=== PATIENT | male | born 1980 | race African-American/Black ===

== ENCOUNTER 2017-03-20 12:20 | Inpatient (IN) | payer MEDICAID, OTHER ==
[~2017-03-20] VITALS: Ht 170.2 cm; Wt 72.6 kg
[~2017-03-20 12:20] MED LIST: AMLO10TA PO; ATI2I IM/IVP; Acetaminophen/Hydrocodone Bi PO; CITA20TA15 PO; LORA-476 PO; MULT-405 PO; OLAN5TAB29 PO; ONDA2SOL80 IVP; ORE25 PO; THIA100T25 PO; TOR30I IM; [UNRECOGNIZED DRUG - CODE] IVP
[2017-03-20 12:23] VITALS: BP 147/80
--- NOTE | 2017-03-20 12:27 | NUR ---
Patient to OF.
--- NOTE | 2017-03-20 12:50 | NUR ---
Patient ambulated to bed 03.
--- NOTE | 2017-03-20 12:54 | NUR ---
PATIENT PRESENTS TO ED FOR EVALUATION OF SUICIDAL IDEATION . PT STATES FOR THE PAST 3 WEEKS THE VOICES IN HIS HEAD HAVE BEEN TELLING HIM TO KILL HIMSELF. PT DENIES HAVING ANY KIND OF PLAN TO HARM HIMSELF . DENIES N/V/D; SKIN IS PINK/WARM/DRY; AAOX4 WITH EVEN AND STEADY GAIT; LUNGS CLEAR BL; HR EVEN AND REGULAR; PT DENIES ANY FEVER, CP, SOB, OR COUGH AT THIS TIME; PATIENT STATES PAIN OF 0/10 AT THIS TIME; VSS; PATIENT POSITIONED FOR COMFORT; HOB ELEVATED; BEDRAILS UP X2; BED DOWN. ER MD MADE AWARE OF PT STATUS.
--- NOTE | 2017-03-20 12:57 | NUR ---
DENISE Nieves AT BEDSIDE.
--- NOTE | 2017-03-20 13:09 | NUR ---
PT PLACED ON [facility]0 HOLD. Ryan NOTIFIED.
[2017-03-20 13:11] LABS: BASOPHILS # (AUTO) 0.1 K/uL (0.00-0.22); BASOPHILS % (AUTO) 2.2 % (0.0-2.0); EOSINOPHILS # (AUTO) 0.2 K/uL (0-0.4); HEMATOCRIT 38.8 % (36-52); HEMOGLOBIN 12.3 g/dL (12.0-18.0); LYMPHOCYTES # (AUTO) 2.5 K/uL (2.0-11.5); LYMPHOCYTES % (AUTO) 51.4 % (20.5-51.1); MEAN CORPUSCULAR HEMOGLOBIN 27 pg (27-31); MEAN CORPUSCULAR HGB CONC 32 g/dL (33-37); MEAN CORPUSCULAR VOLUME 84 fL (80-94); MONOCYTES # (AUTO) 0.5 K/uL (0.8-1.0); MONOCYTES % (AUTO) 9.1 % (1.7-9.3); NEUTROPHILS # (AUTO) 1.7 K/uL (1.8-7.7); NEUTROPHILS % (AUTO) 33.3 % (42.2-75.2); PLATELET COUNT (AUTO) 419 K/uL (140-450); RED BLOOD CELL COUNT(AUTO) 4.61 MIL/uL (4.20-6.10); RED CELL DISTRIBUTION WIDTH 15.4 % (11.6-13.7)
[2017-03-20 13:13] LABS: ANION GAP 11.4 (8-16); CALCIUM 8.9 mg/dL (8.5-10.1); CARBON DIOXIDE 28.5 mmol/L (21-32); CHLORIDE 108 mmol/L (98-107); CREATININE 0.9 mg/dL (0.6-1.3); GFR ARICAN-AMERICAN 121 mL/min (>90); GFR NON ARICAN-AMERICAN 100 mL/min (>90); GLUCOSE 85 mg/dL (74-106); POTASSIUM 3.9 mmol/L (3.5-5.1); SODIUM SERUM 144 mmol/L (136-145); UREA NITROGEN, BLOOD 6 mg/dL (7-18)
[2017-03-20 13:19] LABS: ACETAMINOPHEN 0.7 ug/ml (10-30); ALANINE AMINOTRANSFERASE 29 U/L (12-78); ALBUMIN 3.3 g/dL (3.4-5.0); ALKALINE PHOSPHATASE 106 U/L (46-116); ASPARTATE AMINOTRANSFERASE 17 U/L (15-37); TOTAL BILIRUBIN 0.1 mg/dL (0.0-1.0); TOTAL PROTEIN, SERUM 6.4 g/dL (6.4-8.2)
[2017-03-20 13:21] LABS: ALCOHOL, BLOOD < 3 mg/dL (<3)
[2017-03-20 13:45] LABS: APPEARANCE,URINE CLEAR (CLEAR); BILIRUBIN,URINE NEGATIVE (NEGATIVE); BLOOD, URINE NEGATIVE (NEGATIVE); COLOR,URINE YELLOW (YELLOW); LEUKOCYTE ESTERASE ,URINE NEGATIVE (NEGATIVE); NITRITE, URINE NEGATIVE (NEGATIVE); PH,URINE 6.5 (5.0-9.0); PROTEIN,URINE NEGATIVE (NEGATIVE); UGLUCOSE NEGATIVE (NEGATIVE); UROBILINOGEN,URINE 0.2 EU/dL (0.2 - 1)
--- NOTE | 2017-03-20 13:45 | NUR ---
Dr. Berman evaluating patient at bedside.
[2017-03-20 13:54] LABS: AMPHETAMINE, URINE NEG. ng/ml (NEG <=1000); BARBITURATE, URINE NEG. ng/ml (NEG <=200); BENZODIAZEPINE, URINE NEG. ng/mL (NEG <=200); CANNABINOID, URINE POS. ng/mL (NEG <=50); COCAINE, URINE NEG. ng/mL (NEG <=300); OPIATE, URINE NEG. ng/mL (NEG <=2000); PHENCYCLIDINE SCREEN,URINE NEG. ng/mL (NEG <=25)
--- NOTE | 2017-03-20 14:14 | NUR ---
PT EATING LUNCH ON GURNEY. DENIES ANY PAIN OR DISCOMFORT AT THIS TIME.
[2017-03-20] MEDS ORDERED: KETOROLAC 30 MG/ML VIAL IVP PRN (15:35)
[2017-03-20] MEDS ORDERED: ONDANSETRON 4 MG/2 ML VIAL IVP PRN (15:35)
[2017-03-20] MEDS ORDERED: MORPHINE SULFATE 2 MG/ML SYR IVP PRN (15:35)
[2017-03-20] MEDS ORDERED: LORazepam 1 MG TAB PO PRN (15:40)
[2017-03-20] MEDS ORDERED: LORazepam 2 MG/ML VIAL IM/IVP PRN (15:40)
--- NOTE | 2017-03-20 15:42 | NUR ---
Patient will be admitted to care of DR. PAYTON. Admited to ICU. Will go to room 5. Belongings list completed. Report to HILLARY EASTON.
--- NOTE | 2017-03-20 15:50 | NUR ---
RECEIVED PATIENT FROM ED TO ICU5. ALERT AND ORIENTED X4. LEFT DORSAL HAND PERIPHERAL IV PATENT AND INTACT. ABLE TO WALK TO BED FOR TRANSFER. SKIN WARM TO TOUCH WNL, NO EDEMA, NO HAIR GROWTH, SCARRING NOTED ON RLE. MADE COMFORTABLE IN BED. CALL LIGHT WITHIN REACH.
[2017-03-20 16:00] VITALS: BP 136/84
[2017-03-20 16:29] LABS: INR 0.9 (0.8-1.2); PARTIAL THROMBOPLASTIN TIME 28.4 secs (22-35.6); PROTHROMBIN TIME 8.8 secs (10.8-13.4)
[2017-03-20 16:36] LABS: BILIRUBIN,DIRECT 0.1 mg/dL (0.0-0.3); CHOL/HDL RATIO 2.5 (1-4.5); FREE T4 (FREE THYROXINE) 0.89 ng/dL (0.76-1.46); MAGNESIUM 1.9 mg/dL (1.8-2.4); PHOSPHORUS 3.4 mg/dL (2.5-4.9); THYROID STIMULATING HORMONE 0.65 uIU/mL (0.34-3.76)
[2017-03-20] MEDS ORDERED: HYDROCHLOROTHIAZIDE 25 MG TAB PO SCH (16:37)
[2017-03-20] MEDS ORDERED: CITALOPRAM 20 MG TAB PO SCH (16:46)
[2017-03-20] MEDS: NACL 0.9% 1,000 ML IV SCH (17:30)
--- NOTE | 2017-03-20 18:50 | NUR ---
TRANSFERRED PATIENT TO [facility] IN STABLE CONDITION. REPORT GIVEN TO PRIMARY RN.
--- NOTE | 2017-03-20 19:30 | NUR ---
RECEIVED REPORT FROM MARKUS RN. PATIENT IS ALERT, AWAKE, AND ORIENTED. PATIENT IS ON BEDREST WITH 1:1 SITTER RELATED TO DX SUICIDAL IDEATION AND 5150. NO SIGNS OF RESPIRATORY DISTRESS OR SOB NOTED. VITALS ARE STABLE WITH NO REPORTS OF PAIN OR DISCOMFORT AT THIS TIME. THERE IS A #20 IN THE LEFT HAND RECEIVING NORMAL SALINE AT 100 ML/HR. SITE IS DRY, INTACT, AND ASYMPTOMATIC. EXPLAINED PLAN OF CARE TO PATIENT TO INCLUDE 1:1 SITTER, TELEMETRY MONITORING, AND SCHEDULED MEDICATIONS. PATIENT VERBALIZED UNDERSTANDING. CONTINUE TO MONITOR PATIENT.
[2017-03-20 20:00] VITALS: BP 144/95
--- NOTE | 2017-03-20 20:00 | NUR ---
MARTY CARROLL ASSISTED PATIENT TO TOILET FOR BM. GAIT STEADY WITH NO SIGNS OF DISTRESS NOTED. CONTINUE TO MONITOR.
--- NOTE | 2017-03-20 22:30 | NUR ---
PATIENT IS SLEEPING IN BED. BREATHING IS EVEN AND UNLABORED. PATIENT IS UNDER CLOSE OBSERVATION WITH 1:1 SITTER. WILL CONTINUE TO MONITOR PATIENT.
--- NOTE | 2017-03-20 23:35 | NUR ---
MARTY CARROLL ASSISTED PATIENT TO BATHROOM TO VOID. NO SIGNS OF DISTRESS NOTED. CONTINUE TO MONITOR.
[2017-03-21] VITALS: BP 139/74
--- NOTE | 2017-03-21 00:15 | NUR ---
VITAL SIGNS STABLE. NO REPORTS OF PAIN OR DISCOMFORT. CLOSE OBSERVATION WITH 1:1 SITTER. CONTINUE TO MONITOR PATIENT.
--- NOTE | 2017-03-21 02:00 | NUR ---
PATIENT SELF AMBULATED TO BATHROOM TO VOID. NO SIGNS OF DISTRESS NOTED. 1:1 SITTER WITH CLOSE OBSERVATION. CONTINUE TO MONITOR.
--- NOTE | 2017-03-21 02:05 | NUR ---
PATIENT SELF AMBULATED BACK INTO BED. NO SIGNS OF DISTRESS NOTED. 1:[address] FOR CLOSE OBSERVATION. CONTINUE TO MONITOR PATIENT.
[2017-03-21] MEDS: NACL 0.9% 1,000 ML IV SCH ×4 (02:45→23:14)
[2017-03-21 04:00] VITALS: BP 133/82
--- NOTE | 2017-03-21 04:00 | NUR ---
PATIENT IS RESTING COMFORTABLY IN BED, WITH 1:1 SITTER FOR CLOSE OBSERVATION. VITALS ARE WNL. NO C/O PAIN OR DISCOMFORT AT THIS TIME. CONTINUE TO MONITOR PATIENT.
[2017-03-21 06:51] LABS: BASOPHILS # (AUTO) 0.1 K/uL (0.00-0.22); BASOPHILS % (AUTO) 1.7 % (0.0-2.0); EOSINOPHILS # (AUTO) 0.2 K/uL (0-0.4); EOSINOPHILS % (AUTO) 3.5 % (0.0-4.0); HEMATOCRIT 38.7 % (36-52); HEMOGLOBIN 12.8 g/dL (12.0-18.0); LYMPHOCYTES # (AUTO) 2.5 K/uL (2.0-11.5); LYMPHOCYTES % (AUTO) 47.8 % (20.5-51.1); MEAN CORPUSCULAR HEMOGLOBIN 27 pg (27-31); MEAN CORPUSCULAR HGB CONC 33 g/dL (33-37); MEAN CORPUSCULAR VOLUME 83 fL (80-94); MONOCYTES # (AUTO) 0.5 K/uL (0.8-1.0); PLATELET COUNT (AUTO) 415 K/uL (140-450); RED BLOOD CELL COUNT(AUTO) 4.65 MIL/uL (4.20-6.10); RED CELL DISTRIBUTION WIDTH 15.7 % (11.6-13.7); WHITE BLOOD COUNT (AUTO) 5.4 K/uL (4.8-10.8)
[2017-03-21 07:05] LABS: ANION GAP 11.5 (8-16); CALCIUM 8.4 mg/dL (8.5-10.1); CARBON DIOXIDE 28.3 mmol/L (21-32); CREATININE 0.9 mg/dL (0.6-1.3); POTASSIUM 3.8 mmol/L (3.5-5.1)
[2017-03-21 07:15] LABS: MAGNESIUM 1.8 mg/dL (1.8-2.4)
--- NOTE | 2017-03-21 07:20 | NUR ---
PATIENT IN STABLE CONDITION. ENDORSED CONTINUITY OF CARE TO SELENA THORNTON.
--- NOTE | 2017-03-21 07:21 | NUR ---
RECEIVED REPORT FROM HILLARY VICENTE AT PT BEDSIDE. PT IS AAOX4. DENIES DISCOMFORT. NO S/S OF RESPIRATORY DISTRESS. PT IS ON 1:1 DIRECT OBSERVATION WITH A SITTER FOR SUICIDAL IDEATION. IV SITE PATENT AND INTACT. ORIENTED PATIENT TO HOSPITAL ENVIRONMENT. SAFETY MEASURES ENSURED. BED IN LOWEST POSITION. CALL LIGHT WITHIN REACH. PT DOES NOT HAVE ACTIVE THOUGHTS OF SUICIDAL IDEATION AT THIS TIME.
[2017-03-21 08:00] VITALS: BP 147/99
[2017-03-21] MEDS: MULTIVITAMIN 1 TAB PO SCH (08:37)
[2017-03-21] MEDS: CITALOPRAM 20 MG TAB PO SCH (08:37)
[2017-03-21] MEDS: THIAMINE 100 MG TAB PO SCH (08:37)
[2017-03-21] MEDS: amLODIPine 5 MG TAB PO SCH (08:37)
[2017-03-21] MEDS: OLANZapine 5 MG TAB PO SCH (08:37)
[2017-03-21] MEDS: FAMOTIDINE 20 MG TAB PO SCH (08:37)
[2017-03-21] MEDS: HYDROCHLOROTHIAZIDE 25 MG TAB PO SCH (08:37)
[2017-03-21] MEDS: DOCUSATE SODIUM 100 MG GELCAP PO SCH (08:38)
--- NOTE | 2017-03-21 10:13 | NUR ---
PATIENT HAS BEEN SCREENED AND CATEGORIZED LOW NUTRITION RISK. PATIENT WILL BE SEEN WITHIN 7 DAYS OF ADMISSION. 03/27/[address]
--- NOTE | 2017-03-21 11:56 | NUR ---
PT RESTING IN BED. SITTER AT BEDSIDE. NO S/S OF ACUTE DISTRESS NOTED. IV FOUND TO BE REMOVED, CANULA INTACT.
[2017-03-21 12:00] VITALS: BP 132/77
--- NOTE | 2017-03-21 14:41 | NUR ---
PT SLEEPING IN BED. NO S/S OF ACUTE DISTRESS. 1:1 DIRECT OBSERVATION FOR SAFETY IN PLACE.
--- NOTE | 2017-03-21 15:26 | NUR ---
CM NOTE FAXED INQUIRY AND GAVE THE NUMBER TO THE NURSING UNIT WHERE PATIENT IS TO: [facility]
[2017-03-21 16:00] VITALS: BP 124/66
--- NOTE | 2017-03-21 17:02 | NUR ---
ASSISTED PT TO SHOWER. LINENS CHANGED. NO S/S OF ACUTE DISTRESS. PATIENT BACK IN BED.
--- NOTE | 2017-03-21 18:00 | NUR ---
PATIENT WAS SEEN BY DR. MCKEON. PATIENT IS CONTINUED TO BE ON 5150 HOLD.
--- NOTE | 2017-03-21 19:11 | NUR ---
SBAR REPORT GIVEN TO HILLARY SHIN AT PT BEDSIDE. NO S/S OF ACUTE DISTRESS NOTED.
--- NOTE | 2017-03-21 19:30 | NUR ---
RECEIVED REPORT FROM SELENA THORNTON AT BEDSIDE. PT IS ALERT AWAKE ORIENTED X4. INITIAL ASSESSMENT DONE. NO S/S OF RESPIRATORY DISTRESS OR SOB NOTED. NO C/O PAIN OR ANY DISCOMFORT AT THIS TIME. PT HAS NO IV ACCESS BECAUSE HE REFUSED TO HAVE ONE AND DR. PAYTON MADE AWARE ACCORDING TO SELENA THORNTON. PT IS ON 1:1 SITTER D/T 5150 ON HOLD. PLAN OF CARE REVIEWED TO PT AND VERBALIZED UNDERSTANDING. CALL LIGHT WITHIN REACH. WILL CONTINUE TO MONITOR.
[2017-03-21] MEDS: ACETAMINOPHEN 325 MG TAB PO PRN (22:44)
[2017-03-22] VITALS: BP 127/73
--- NOTE | 2017-03-22 00:30 | NUR ---
PT IS SLEEPING RIGHT NOW BUT EASILY AROUSABLE. NO S/S OF ANY DISCOMFORT AT THIS TIME. ALL NEEDS ARE ATTENDED. CALL LIGHT WITHIN REACH. WILL CONTINUE TO MONITOR.
--- NOTE | 2017-03-22 05:10 | NUR ---
AM CARE RENDERED. BED LINEN CHANGED. INSTRUCTED PATIENT TO REPOSITION. KEPT CLEAN AND DRY. CALL LIGHT WITHIN REACH. WILL CONTINUE TO MONITOR.
[2017-03-22 07:00] LABS: BASOPHILS # (AUTO) 0.1 K/uL (0.00-0.22); EOSINOPHILS # (AUTO) 0.2 K/uL (0-0.4); EOSINOPHILS % (AUTO) 2.2 % (0.0-4.0); HEMATOCRIT 40.6 % (36-52); HEMOGLOBIN 13.3 g/dL (12.0-18.0); LYMPHOCYTES # (AUTO) 2.6 K/uL (2.0-11.5); LYMPHOCYTES % (AUTO) 37.7 % (20.5-51.1); MEAN CORPUSCULAR HEMOGLOBIN 27 pg (27-31); MEAN CORPUSCULAR HGB CONC 33 g/dL (33-37); MEAN CORPUSCULAR VOLUME 83 fL (80-94); MONOCYTES # (AUTO) 0.6 K/uL (0.8-1.0); MONOCYTES % (AUTO) 8.8 % (1.7-9.3); NEUTROPHILS # (AUTO) 3.4 K/uL (1.8-7.7); NEUTROPHILS % (AUTO) 50.3 % (42.2-75.2); PLATELET COUNT (AUTO) 415 K/uL (140-450); RED BLOOD CELL COUNT(AUTO) 4.88 MIL/uL (4.20-6.10); RED CELL DISTRIBUTION WIDTH 15.2 % (11.6-13.7); WHITE BLOOD COUNT (AUTO) 6.9 K/uL (4.8-10.8)
[2017-03-22 07:12] LABS: ANION GAP 10.6 (8-16); CALCIUM 8.8 mg/dL (8.5-10.1); CARBON DIOXIDE 30.3 mmol/L (21-32); POTASSIUM 3.9 mmol/L (3.5-5.1)
--- NOTE | 2017-03-22 07:30 | NUR ---
RECEIVED PT ON BED AAOX4. NO SOB NOTED. NO C/O PAIN AT THIS TIME. NO IV ACCESS, PT REFUSED IV RESTART, DOCTORS AWARE. CHEST CLEAR. ABDOMEN SOFT, BOWEL SOUNDS PRESENT. NO EDEMA NOTED. INSTRUCTED PT TO CALL FOR ASSISTANCE, CALL LIGHT WITHIN REACH, PT VERBALIZED UNDERSTANDING. PT ON 5150 HOLD, WITH 1:1 SITTER AT THE BEDSIDE. NO SUICIDAL IDEATION NOTED AT THIS TIME.WILL CONTINUE TO MONITOR.
[2017-03-22 08:00] VITALS: BP 156/97
[2017-03-22] MEDS: NACL 0.9% 1,000 ML IV SCH ×2 (08:45→17:44)
[2017-03-22] MEDS: CITALOPRAM 20 MG TAB PO SCH (09:14)
[2017-03-22] MEDS: FAMOTIDINE 20 MG TAB PO SCH (09:14)
[2017-03-22] MEDS: DOCUSATE SODIUM 100 MG GELCAP PO SCH (09:14)
[2017-03-22] MEDS: OLANZapine 5 MG TAB PO SCH (09:14)
[2017-03-22] MEDS: MULTIVITAMIN 1 TAB PO SCH (09:14)
[2017-03-22] MEDS: HYDROCHLOROTHIAZIDE 25 MG TAB PO SCH (09:15)
[2017-03-22] MEDS: THIAMINE 100 MG TAB PO SCH (09:15)
[2017-03-22] MEDS: amLODIPine 5 MG TAB PO SCH (09:15)
--- NOTE | 2017-03-22 12:30 | NUR ---
PT CONSUMED 100% OF EVERY MEAL SERVED. FOOD TOLERATED WELL.
[2017-03-22 16:00] VITALS: BP 157/78
--- NOTE | 2017-03-22 16:23 | NUR ---
PT RESTING. NO SOB NOTED. NO COMPLAINTS MADE. NO SUICIDAL IDEATION NOTED AT THIS TIME. ENDORSED TO LUCY-HILLARY FOR CONTINUITY OF CARE.
--- NOTE | 2017-03-22 16:25 | NUR ---
RECEIVED PT REPORT FROM ERNIE THORNTON. PT IS RESTING IN BED AND AAOX4. PT STATES HE HAS NO PAIN. PT SHOWS NO S/S OF DISTRESS ON ROOM AIR.
[2017-03-22] MEDS: ACETAMINOPHEN 325 MG TAB PO PRN (17:29)
--- NOTE | 2017-03-22 18:56 | NUR ---
PT IN ROOM WITH ONE TO ONE SITTER. PT AAOX4 AND SHOWS NO S/S OF DISTRESS ON ROOM AIR.
--- NOTE | 2017-03-22 19:15 | NUR ---
GAVE REPORT TO NIGHT NURSE. PT IS IN BED SLEEPING AND SHOWS NO S/S OF DISTRESS ON ROOM AIR. PT ENDORSED IN STABLE CONDITION.
--- NOTE | 2017-03-22 19:20 | NUR ---
RECEIVED PT SLEEPING, NO SIGNS OF DISTRESS, NO IV ACCESS, PT REFUSED TO START A NEW IV SITE, DR IS AWARE, SAFETY MEASURES IN PLACE, CALL LIGHT WITHIN REACH, SITTER AT BEDSIDE.
[2017-03-23] VITALS: BP 157/90
--- NOTE | 2017-03-23 | NUR ---
PT SLEEPING, EASILY AROUSABLE, VITAL SIGNS STABLE, NO SIGNS OF DISTRESS, CONTINUE TO MONITOR CLOSELY, SITTER AT BEDSIDE.
--- NOTE | 2017-03-23 04:40 | NUR ---
PT AWAKE, CALM AND COOPERATIVE, REQUESTING FOR SNACK, PUDDING AND RYLEE CRACKERS PROVIDED, MONITORED CLOSELY.
[2017-03-23] MEDS: NACL 0.9% 1,000 ML IV SCH ×2 (04:45→14:45)
--- NOTE | 2017-03-23 06:10 | NUR ---
PT SLEEPING, NO SIGNS OF DISTRESS, AWAITING PSYCH FACILITY PLACEMENT, SITTER AT BEDSIDE.
--- NOTE | 2017-03-23 07:20 | NUR ---
PT AWAKE, WALKING INSIDE THE ROOM, NO DISTRESS NOTED, REPORT GIVEN TO HILLARY WASHINGTON FOR CONTINUITY OF CARE.
--- NOTE | 2017-03-23 07:25 | NUR ---
RECEIVED REPORT FROM HILLARY CONTRERAS. PT IS A/OX3, SKIN IS INTACT, THERE IS NO IV ACCESS, PT REFUSED IV, PT IS RESTING IN BED, NO DISTRESS NOTED, 1:1 SITTER IS AT BEDSIDE, NO S/S OF RESPIRATORY DISTRESS OR DISCOMFORT NOTED, SAFETY/FALL/SUICIDE PRECAUTIONS ARE IN PLACE, DISCUSSED PLAN OF CARE WITH PT, PT VERBALIZED UNDERSTANDING, CALL LIGHT IS WITHIN REACH, WILL CONTINUE TO MONITOR.
[2017-03-23 07:29] LABS: ANION GAP 12.8 (8-16); CALCIUM 8.9 mg/dL (8.5-10.1); CARBON DIOXIDE 29.6 mmol/L (21-32); POTASSIUM 3.4 mmol/L (3.5-5.1)
[2017-03-23 07:31] LABS: BASOPHILS # (AUTO) 0.1 K/uL (0.00-0.22); BASOPHILS % (AUTO) 1.5 % (0.0-2.0); EOSINOPHILS # (AUTO) 0.2 K/uL (0-0.4); EOSINOPHILS % (AUTO) 2.8 % (0.0-4.0); HEMATOCRIT 40.7 % (36-52); HEMOGLOBIN 13.6 g/dL (12.0-18.0); LYMPHOCYTES # (AUTO) 2.7 K/uL (2.0-11.5); LYMPHOCYTES % (AUTO) 36.6 % (20.5-51.1); MEAN CORPUSCULAR HEMOGLOBIN 28 pg (27-31); MEAN CORPUSCULAR HGB CONC 34 g/dL (33-37); MEAN CORPUSCULAR VOLUME 83 fL (80-94); MONOCYTES # (AUTO) 0.6 K/uL (0.8-1.0); MONOCYTES % (AUTO) 8.6 % (1.7-9.3); NEUTROPHILS # (AUTO) 3.9 K/uL (1.8-7.7); NEUTROPHILS % (AUTO) 50.5 % (42.2-75.2); PLATELET COUNT (AUTO) 448 K/uL (140-450); RED BLOOD CELL COUNT(AUTO) 4.92 MIL/uL (4.20-6.10); RED CELL DISTRIBUTION WIDTH 15.3 % (11.6-13.7); WHITE BLOOD COUNT (AUTO) 7.5 K/uL (4.8-10.8)
[2017-03-23 07:34] LABS: MAGNESIUM 1.7 mg/dL (1.8-2.4); PHOSPHORUS 3.9 mg/dL (2.5-4.9)
[2017-03-23 08:00] VITALS: BP 149/96
[2017-03-23] MEDS: CITALOPRAM 20 MG TAB PO SCH (09:30)
--- NOTE | 2017-03-23 09:30 | NUR ---
DUE MEDICATIONS GIVEN, PT TOLERATED WELL, CALL LIGHT WITHIN REACH, SITTER IS AT BEDSIDE, WILL CONTINUE TO MONITOR.
[2017-03-23] MEDS: FAMOTIDINE 20 MG TAB PO SCH (09:31)
[2017-03-23] MEDS: HYDROCHLOROTHIAZIDE 25 MG TAB PO SCH (09:31)
[2017-03-23] MEDS: THIAMINE 100 MG TAB PO SCH (09:31)
[2017-03-23] MEDS: OLANZapine 5 MG TAB PO SCH (09:31)
[2017-03-23] MEDS: amLODIPine 5 MG TAB PO SCH (09:31)
[2017-03-23] MEDS: MULTIVITAMIN 1 TAB PO SCH (09:31)
[2017-03-23] MEDS: DOCUSATE SODIUM 100 MG GELCAP PO SCH (09:32)
--- NOTE | 2017-03-23 11:30 | NUR ---
PT RESTING IN BED AT THIS TIME, NO S/S OF DISTRESS NOTED, SITTER AT BEDSIDE.
--- NOTE | 2017-03-23 12:49 | NUR ---
RECEIVED PHONE CALL FROM [facility] [address] STATING THEY WOULD POSSIBLY HAVE A BED AVAILABLE TOMORROW.
--- NOTE | 2017-03-23 15:00 | NUR ---
PATIENT RESTING IN BED, WATCHING TV, SITTER IS AT BEDSIDE, CALL LIGHT IS WITHIN REACH.
[2017-03-23] MEDS ORDERED: MAGNESIUM CHLORIDE 64 MG TABEC PO SCH (15:30)
[2017-03-23 16:00] VITALS: BP 131/74
[2017-03-23] MEDS ORDERED: POTASSIUM CHLORIDE 10 MEQ TABER PO SCH (17:00)
--- NOTE | 2017-03-23 17:00 | NUR ---
PATIENT RESTING IN BED, NO S/S OF RESPIRATORY DISTRESS OR DISCOMFORT NOTED, CALL LIGHT WITHIN REACH, SITTER IS AT BEDSIDE, WILL CONTINUE TO MONITOR.
--- NOTE | 2017-03-23 18:00 | NUR ---
SPOKE TO DR. KHAN I LET HIM KNOW THE PATIENT'S MG LEVEL WAS 1.7, I ASKED HIM IF HE COULD ORDER MG PO, I LET HIM KNOW PT HAD NO IV ACCESS, DOCTOR SAID HE WOULD GO AHEAD AND TAKE CARE OF IT.
--- NOTE | 2017-03-23 19:10 | NUR ---
ENDORSED PT TO HILLARY CONTRERAS. FOR CONTINUITY OF CARE, PT STABLE AT THIS TIME, SITTER IS AT BEDSIDE.
--- NOTE | 2017-03-23 19:15 | NUR ---
RECEIVED REPORTS FROM DAY RN. PATIENT RESTING IN BED, NO S/S OF ACUTE DISTRESS NOTED, AAOX4. RESPIRATION EVEN AND UNLABORED, ON ROOM AIR. PATIENT DENIES PAIN AT THIS TIME. PT HAS NO IV ACCESS AND REFUSED TO START A NEW ONE, IS AWARE. 1:1 SITTER AT BEDSIDE, PATIENT IS CLAM AND NO SUICIDAL IDEATION NOTED AT THIS TIME. DISCUSSED PLAN OF CARE, PATIENT VERBALIZED UNDERSTANDING. CALL LIGHT WITHIN REACH, SAFETY MEASURE ENSURED, WILL CONTINUE TO MONITOR.
--- NOTE | 2017-03-23 19:47 | NUR ---
MAGNESIUM CHLORIDE PO WAS NOT GIVEN BY AM NURSE, PAGED DR KENDALL TO GET ANOTHER ORDER, SHE SAID SHE WILL TAKE CARE OF THAT TOMORROW.
[2017-03-23] MEDS: HYDROcodone/APAP 7.5/325 MG 1 TAB PO PRN (20:31)
--- NOTE | 2017-03-23 20:35 | NUR ---
PT STATED PAIN 6/10, MEDICATED NORCO ORDERED. NO S/S OF ACUTE DISTRESS NOTED, CALL LIGHT WITHIN REACH, SAFETY MEASURE ENSURED, WILL CONTINUE TO MONITOR
--- NOTE | 2017-03-23 21:31 | NUR ---
PT SLEEPING IN BED, RESPIRATION EVEN AND UNLABORED, 1:1 SITTER AT BEDSIDE. NO S/S OF ACUTE DISTRESS NOTED, CALL LIGHT WITHIN REACH, WILL CONTINUE TO MONITOR
[2017-03-24] VITALS: BP 141/91
--- NOTE | 2017-03-24 | NUR ---
PT ASLEEP, EASILY TO AROUSE, VITAL SIGNS TAKEN, BP SLIGHTLY ELEVATED. PT DENIES PAIN AT THIS TIME. NO S/S OF ACUTE DISTRESS OR DISCOMFORT NOTED. RESPIRATION EVEN AND UNLABORED. 1:1 SITTER AT BEDSIDE. CALL LIGHT WITHIN REACH, SAFETY MEASURE ENSURED, WILL CONTINUE TO MONITOR.
--- NOTE | 2017-03-24 01:46 | NUR ---
PT SLEEP IN BED, NO S/S OF ACUTE DISTRESS NOTED. SITTER AT BEDSIDE. SAFETY MEASURE ENSURED, CALL LIGHT WITHIN REACH, WILL CONTINUE TO MONITOR
--- NOTE | 2017-03-24 04:40 | NUR ---
PT ASLEEP. SITTER AT THE BEDSIDE. NO S/S OF ACUTE DISTRESS OR DISCOMFORT NOTED. RESPIRATION EVEN AND UNLABORED, SAFETY MEASURE ENSURED, CALL LIGHT WITHIN REACH, WILL CONTINUE TO MONITOR.
--- NOTE | 2017-03-24 07:05 | NUR ---
ENDORSED PLAN OF CARE TO DAY SHIFT RN. PT RESTING IN BED, NO S/S OF ACUTE DISTRESS NOTED, PT IS STABLE.
--- NOTE | 2017-03-24 07:06 | NUR ---
RECEIVED REPORT AT BEDSIDE FROM CONCRETE PILE DRIVER OPERATOR NURSE. PT IS ALERT AWAKE AND ORIENTED. INTRODUCED MYSELF AND UPDATED THE BOARD. PT DENIES HALLUCINATIONS AT THIS POINT. PT WANTED MORE FOOD FOR BREAKFAST. CALLED KITCHEN AND MADE AWARE. SITTER AT BEDSIDE. CALL LIGHT WITHIN REACH. WILL CONTINUE TO MONITOR.
[2017-03-24 08:00] VITALS: BP 140/86
[2017-03-24] MEDS: CITALOPRAM 20 MG TAB PO SCH (09:04)
[2017-03-24] MEDS: FAMOTIDINE 20 MG TAB PO SCH (09:04)
[2017-03-24] MEDS: OLANZapine 5 MG TAB PO SCH (09:04)
[2017-03-24] MEDS: THIAMINE 100 MG TAB PO SCH (09:05)
[2017-03-24] MEDS: DOCUSATE SODIUM 100 MG GELCAP PO SCH (09:05)
[2017-03-24] MEDS: amLODIPine 5 MG TAB PO SCH (09:05)
[2017-03-24] MEDS: MULTIVITAMIN 1 TAB PO SCH (09:05)
[2017-03-24] MEDS: HYDROCHLOROTHIAZIDE 25 MG TAB PO SCH (09:05)
--- NOTE | 2017-03-24 09:30 | NUR ---
SITTER ACCOMPANIED PT TO SHOWER. PT TOLERATED WELL. WILL CONTINUE TO MONITOR.
--- NOTE | 2017-03-24 11:00 | NUR ---
PT IS RESTING COMFORTABLY IN BED. NO SIGNS OF DISTRESS. NO COMPLAINTS AT THIS TIME. WILL CONTINUE TO MONITOR.
--- NOTE | 2017-03-24 13:50 | NUR ---
PROVIDED PT WITH JUICE AND CRACKERS. NO OTHER COMPLAINTS AT THIS TIME. WILL CONTINUE TO MONITOR.
--- NOTE | 2017-03-24 14:43 | NUR ---
Social Service Note: Per Yanira from [facility] , they only accept adult [facility] patients under the age of 21. Per Darcy from [facility] , no beds available at this time. Per Alcides from [facility] , no beds available at this time. Per Katerina from [facility] , no beds available at this time. Per Shelbie from [facility] , no beds available at this time.
--- NOTE | 2017-03-24 15:47 | NUR ---
SPOKE TO REGARDING LOW MAG LEVEL YESTERDAY 1.7 AND DAY SHIFT NURSE DID NOT ADMINISTER MAG. WILL PUT IN ANOTHER ORDER.
[2017-03-24] MEDS ORDERED: MAGNESIUM OXIDE 400 MG TAB PO SCH (15:52)
[2017-03-24 16:00] VITALS: BP 127/67
--- NOTE | 2017-03-24 16:43 | NUR ---
PT SLEEPING. SITTER AT BEDSIDE. NO SIGNS OF DISTRESS. WILL CONTINUE TO MONITOR PT.
[2017-03-24] MEDS: HYDROcodone/APAP 7.5/325 MG 1 TAB PO PRN (18:13)
--- NOTE | 2017-03-24 19:06 | NUR ---
ENDORSED PT TO THE PERSONAL BANKER NURSE AT BEDSIDE FOR CONTINUITY OF CARE. PT IS IN STABLE CONDITION.
--- NOTE | 2017-03-24 19:30 | NUR ---
ASSUMED CARE OF PATIENT, AMBULATING IN HALLWAY WITH SITTER 1:1 BESIDE. NO COMPLAINS. NO DISTRESS NOTED. CALL LIGHT WITHIN REACH.
--- NOTE | 2017-03-24 20:00 | NUR ---
SITTER AT BEDSIDE. NO COMPLAINS. SLEEPING WELL. CALL LIGHT WITHIN REACH.
[2017-03-24 23:38] VITALS: BP 131/75
--- NOTE | 2017-03-25 00:08 | NUR ---
SLEEPING WELL. EASILY AROUSABLE. NO COMPLAINS. VITAL SIGNS STABLE. CALL LIGHT WITHIN REACH. SITTER 1:1 AT BEDSIDE.
[2017-03-25] MEDS: ACETAMINOPHEN 325 MG TAB PO PRN (00:44)
--- NOTE | 2017-03-25 04:36 | NUR ---
SLEEPING WELL. NO DISTRESS. SITTER AT BEDSIDE AT ALL TIME. CALL LIGHT WITHIN REACH.
[2017-03-25 06:38] LABS: BASOPHILS # (AUTO) 0.2 K/uL (0.00-0.22); BASOPHILS % (AUTO) 2.5 % (0.0-2.0); EOSINOPHILS # (AUTO) 0.2 K/uL (0-0.4); EOSINOPHILS % (AUTO) 3.9 % (0.0-4.0); HEMATOCRIT 41.6 % (36-52); HEMOGLOBIN 13.6 g/dL (12.0-18.0); LYMPHOCYTES # (AUTO) 2.8 K/uL (2.0-11.5); LYMPHOCYTES % (AUTO) 44.4 % (20.5-51.1); MEAN CORPUSCULAR HEMOGLOBIN 28 pg (27-31); MEAN CORPUSCULAR HGB CONC 33 g/dL (33-37); MEAN CORPUSCULAR VOLUME 84 fL (80-94); MONOCYTES # (AUTO) 0.5 K/uL (0.8-1.0); MONOCYTES % (AUTO) 8.5 % (1.7-9.3); NEUTROPHILS # (AUTO) 2.6 K/uL (1.8-7.7); NEUTROPHILS % (AUTO) 40.7 % (42.2-75.2); PLATELET COUNT (AUTO) 434 K/uL (140-450); RED BLOOD CELL COUNT(AUTO) 4.97 MIL/uL (4.20-6.10); RED CELL DISTRIBUTION WIDTH 15.7 % (11.6-13.7); WHITE BLOOD COUNT (AUTO) 6.4 K/uL (4.8-10.8)
[2017-03-25 06:50] LABS: ANION GAP 12.4 (8-16); CALCIUM 9.2 mg/dL (8.5-10.1); CARBON DIOXIDE 31.5 mmol/L (21-32); POTASSIUM 3.9 mmol/L (3.5-5.1)
[2017-03-25 06:55] LABS: MAGNESIUM 1.9 mg/dL (1.8-2.4)
--- NOTE | 2017-03-25 07:16 | NUR ---
ENDORSED CARE AT BEDSIDE WITH SUSAN THORNTON, PATIENT IN STABLE CONDITION.
--- NOTE | 2017-03-25 07:17 | NUR ---
RECEIVED REPORT FROM CLOSING AGENT NURSE AT BEDSIDE. PT IS ALERT AWAKE AND ORIENTED. INTRODUCED MYSELF AND UPDATED THE BOARD. PT DENIES SI OR HALLUCINATIONS AT THIS POINT. ORDERED ANOTHER TRAY FOR PT. PT HAS NO IV ACCESS. NO OTHER COMPLAINTS AT THIS TIME. CALL LIGHT WITHIN REACH. SITTER AT BEDSIDE. WILL CONTINUE TO MONITOR.
[2017-03-25 08:00] VITALS: BP 148/90
[2017-03-25] MEDS: CITALOPRAM 20 MG TAB PO SCH (08:30)
[2017-03-25] MEDS: FAMOTIDINE 20 MG TAB PO SCH (08:30)
[2017-03-25] MEDS: OLANZapine 5 MG TAB PO SCH (08:31)
[2017-03-25] MEDS: MULTIVITAMIN 1 TAB PO SCH (08:31)
[2017-03-25] MEDS: THIAMINE 100 MG TAB PO SCH (08:31)
[2017-03-25] MEDS: DOCUSATE SODIUM 100 MG GELCAP PO SCH (08:31)
[2017-03-25] MEDS: amLODIPine 5 MG TAB PO SCH (08:31)
[2017-03-25] MEDS: HYDROCHLOROTHIAZIDE 25 MG TAB PO SCH (08:32)
--- NOTE | 2017-03-25 10:01 | NUR ---
SPOKE TO DR REGARDING HIGH PHOSPHORUS LEVEL. DR WILL PUT IN ORDER.
[2017-03-25] MEDS ORDERED: CALCIUM ACETATE 667 MG TAB PO SCH (10:47)
--- NOTE | 2017-03-25 11:20 | NUR ---
CM SPOKE TO PT IN ROOM. NO DISTRESS NOTED. WILL CONTINUE TO MONITOR. SITTER AT BEDSIDE.
--- NOTE | 2017-03-25 13:43 | NUR ---
PT IS SLEEPING IN BED. NO COMPLAINTS AT THIS TIME. NURSE SITTING IN ROOM.
--- NOTE | 2017-03-25 15:00 | NUR ---
PT IS SLEEPING IN BED. SITTER AT BEDSIDE. NO COMPLAINTS OR DISTRESS. WILL CONTINUE TO MONITOR.
[2017-03-25 16:00] VITALS: BP 137/80
--- NOTE | 2017-03-25 16:00 | NUR ---
PT'S HR IS 111. PT STATED HE DOESN'T FEEL DIFFERENT AND DOESN'T FEEL ANXIOUS. PT STATED HE HAS ONLY HAD JUICE, NO WATER ALL DAY. ENCOURAGED PT TO DRINK WATER. WILL RECHECK HR.
--- NOTE | 2017-03-25 16:50 | NUR ---
DR. DO SPOKE TO PT IN ROOM. RECHECKED HR WENT DOWN TO 101. WILL CONTINUE TO MONITOR.
[2017-03-25] MEDS: HYDROcodone/APAP 7.5/325 MG 1 TAB PO PRN (16:53)
--- NOTE | 2017-03-25 17:55 | NUR ---
PT IS EATING DINNER. SITTER AT BEDSIDE. NO COMPLAINTS AT THIS TIME. WILL CONTINUE TO MONITOR.
--- NOTE | 2017-03-25 18:08 | NUR ---
RECHECK PT'S HR, 84.
--- NOTE | 2017-03-25 19:12 | NUR ---
ENDORSED PT TO WAFER SLICER NURSE AT BEDSIDE. PT IN STABLE CONDITION.
--- NOTE | 2017-03-25 19:13 | NUR ---
RECD. RESTING IN BED, AWAKE, A/OX4. RESPIRATION EVEN AND UNLABORED. NO IV LINE. DOES NOT WANT NEW IV LINE TO BE INSERTED. WATCHING TV. WHEN INQUIRED IF HE HAS ANY SUICIDAL THOUGHTS, RESPONDED "NOT AT THIS TIME". PLAN OF CARE FOR THE SHIFT DISCUSSED. VERBALIZED UNDERSTANDING. 1:1 SITTER NEAR BEDSIDE MONITORING PATIENT BEHAVIOR.
--- NOTE | 2017-03-25 19:43 | NUR ---
Patient's Plan of Care was discussed and reviewed with GAS PROVER: DARIAN BERNAL
--- NOTE | 2017-03-25 21:00 | NUR ---
REQUESTED FOR SANDWICH, JUICE AND JELLO FOR SNACK.
--- NOTE | 2017-03-25 21:34 | NUR ---
WITH ANXIETY, MEDICATED WITH ATIVAN 1 MG. PO.
--- NOTE | 2017-03-25 22:34 | NUR ---
NO ANXIETY NOTED, RESTING IN BED COMFORTABLY.
[2017-03-26] VITALS: BP 122/90
--- NOTE | 2017-03-26 | NUR ---
SLEEPING COMFORTABLY IN BED.
--- NOTE | 2017-03-26 02:00 | NUR ---
WOKE UP REQUESTED FOR CRACKERS AND MILK FOR SNACK. BACK TO SLEEP, AFTER EATING.
[2017-03-26 06:51] LABS: BASOPHILS # (AUTO) 0.1 K/uL (0.00-0.22); BASOPHILS % (AUTO) 1.3 % (0.0-2.0); EOSINOPHILS # (AUTO) 0.1 K/uL (0-0.4); EOSINOPHILS % (AUTO) 2.5 % (0.0-4.0); HEMOGLOBIN 13.1 g/dL (12.0-18.0); LYMPHOCYTES # (AUTO) 2.5 K/uL (2.0-11.5); LYMPHOCYTES % (AUTO) 43.7 % (20.5-51.1); MEAN CORPUSCULAR HEMOGLOBIN 27 pg (27-31); MEAN CORPUSCULAR HGB CONC 33 g/dL (33-37); MEAN CORPUSCULAR VOLUME 84 fL (80-94); MONOCYTES # (AUTO) 0.6 K/uL (0.8-1.0); MONOCYTES % (AUTO) 9.6 % (1.7-9.3); NEUTROPHILS # (AUTO) 2.5 K/uL (1.8-7.7); NEUTROPHILS % (AUTO) 42.9 % (42.2-75.2); PLATELET COUNT (AUTO) 416 K/uL (140-450); RED BLOOD CELL COUNT(AUTO) 4.77 MIL/uL (4.20-6.10); RED CELL DISTRIBUTION WIDTH 15.8 % (11.6-13.7); WHITE BLOOD COUNT (AUTO) 5.8 K/uL (4.8-10.8)
--- NOTE | 2017-03-26 06:53 | NUR ---
ABLE TO SLEEP WELL. CONDITION REMAIN STABLE. NO SUICIDAL IDEATION NOTED DURING SHIFT. NEW SITTER MONITORING PATIENT AT THE BEDSIDE. WILL ENDORSE TO AM NURSE FOR CONTINUITY OF SHIFT.
[2017-03-26 07:10] LABS: CALCIUM 9.2 mg/dL (8.5-10.1); CREATININE 0.9 mg/dL (0.6-1.3)
--- NOTE | 2017-03-26 07:15 | NUR ---
ENDORSED TO HILLARY NETTLES FOR CONTINUITY OF CARE.
[2017-03-26 07:17] LABS: MAGNESIUM 1.9 mg/dL (1.8-2.4); PHOSPHORUS 4.9 mg/dL (2.5-4.9)
--- NOTE | 2017-03-26 07:25 | NUR ---
REPORT RECEIVED FROM RD PROJECT MANAGER, PT AAOX4, RESP EVEN UNLABORED ON ROOM AIR IN NAD, SPEAKS CLEARLY, REPLIES "YES" WHEN ASKED IF HE HAS SI, BUT DENIES HAVING CLEAR PLAN, VERBALLY CONTRACTS FOR SAFETY, DENIES HI, PT CALM COOPERATIVE, PLAN OF CARE REVIEWED, PT ON 1;1 WATCH, CALL LU WITHIN REACH, SIDE RAILS UP, BED LOCKED IN LOW POSITION, WILL CONTIUE TO MONITOR.
[2017-03-26 08:00] VITALS: BP 131/78
[2017-03-26] MEDS: MULTIVITAMIN 1 TAB PO SCH (08:54)
[2017-03-26] MEDS: OLANZapine 5 MG TAB PO SCH (08:55)
[2017-03-26] MEDS: THIAMINE 100 MG TAB PO SCH (08:55)
[2017-03-26] MEDS: CITALOPRAM 20 MG TAB PO SCH (08:55)
[2017-03-26] MEDS: FAMOTIDINE 20 MG TAB PO SCH (08:55)
[2017-03-26] MEDS: DOCUSATE SODIUM 100 MG GELCAP PO SCH (08:56)
[2017-03-26] MEDS: amLODIPine 5 MG TAB PO SCH (08:56)
[2017-03-26] MEDS: HYDROCHLOROTHIAZIDE 25 MG TAB PO SCH (08:56)
--- NOTE | 2017-03-26 09:13 | NUR ---
SCHEDULED MEDS GIVEN, PT UP TO BATHROOM AND SHOWER WITH STEADY GAIT, DENIES DIZZINESS OR LIGHTHEADED, 1;1 REINA CATES REMAINS WITH PT.
--- NOTE | 2017-03-26 09:16 | NUR ---
Social Service Note: Per Darcie at [facility] , patient has been accepted. However, she stated they do not have any beds available at this time, she reported they will contact us once they have a bed.
--- NOTE | 2017-03-26 11:20 | NUR ---
PT ELOPED PER 1:1 SITTER AND CHARGE NURSE, SECURITY NOTIFIED, [facility] CALLED AT [phone].
--- NOTE | 2017-03-26 11:50 | NUR ---
[place] [employer] OFFICER HERE SPOKE TO CHARGE NURSE.
== END 2017-03-26 12:00 | disposition left against medical advice (07) | DRG 770 ==
LOC: MED 12:20 → MIC 15:34 → MTU 19:23
PROVIDERS: ADMIT Family Medicine; ATTEND Family Medicine
DX: F12.129 Cannabis abuse with intoxication, unspecified (principal); G92 Toxic encephalopathy; R45.851 Suicidal ideations; F20.0 Paranoid schizophrenia; F10.21 Alcohol dependence, in remission; E44.1 Mild protein-calorie malnutrition; F32.9 Major depressive disorder, single episode, unspecified; F43.10 Post-traumatic stress disorder, unspecified; F17.200 Nicotine dependence, unspecified, uncomplicated; I10 Essential (primary) hypertension; F15.10 Other stimulant abuse, uncomplicated
CPT/HCPCS: 36415; 71010; 80048; 80053; 80305; 81003; 82150; 82248; 83036; 83605; 83690; 83735; 84100; 84439; 84443; 85025; 85610; 85730; 87081; 87086; 93005; 99285; G0480; G0482; J7030

== ENCOUNTER 2017-05-07 22:29 | Emergency (ER) | payer MEDICAID ==
[~2017-05-07] VITALS: Ht 170.2 cm; Wt 68.0 kg
[~2017-05-07 22:29] MED LIST changes: -AMLO10TA PO; -CITA20TA15 PO; -ORE25 PO
[2017-05-07 22:33] VITALS: BP 151/100
--- NOTE | 2017-05-07 23:09 | NUR ---
PT TAKEN TO BED 5
--- NOTE | 2017-05-07 23:30 | NUR ---
37Y M BIB SELF C/O DIZZINESS X 4 HOURS S/P INGESTION OF 2 WELLBUTRIN TAB (PRESCRIBED). PT UNSURE OF STRENGTH, STATES THIS IS HIS FIRST DOES. PT ALSO STATES HE WOKE UP AT [facility] 4 HOURS AGO BUT UNSURE HOW HE GOT THERE. PT DENIES ANY FALL, TRAUMA, STATES 0/10 PAIN. PT RECALL NAME,,LOCATION, MONTH, YEAR BUT NOT TODAYS DAY.
--- NOTE | 2017-05-08 00:01 | NUR ---
Dr. Sotomayor evaluating patient at bedside.
[2017-05-08 00:20] VITALS: BP 137/91
--- NOTE | 2017-05-08 00:20 | NUR ---
Patient discharged with v/s stable. Written and verbal after care instructions given and explained. Patient alert, oriented and verbalized understanding of instructions. Ambulatory with steady gait. All questions addressed prior to discharge. ID band removed. Patient advised to follow up with PMD. Rx of PROZAC 10MG given. Patient educated on indication of medication including possible reaction and side effects. Opportunity to ask questions provided and answered.
== END 2017-05-08 00:20 | disposition home or self-care (01) ==
LOC: MED 22:29
DX: R11.2 Nausea with vomiting, unspecified (principal); T43.295A Adverse effect of other antidepressants, initial encounter; I10 Essential (primary) hypertension; F32.9 Major depressive disorder, single episode, unspecified; Z79.899 Other long term (current) drug therapy; Y92.89 Other specified places as the place of occurrence of the external cause
CPT/HCPCS: 99283

== ENCOUNTER 2017-05-08 04:10 | Emergency (ER) | payer SELFPAY ==
--- NOTE | 2017-05-08 04:45 | NUR ---
PATIENT LEFT WITHOUT BEING SEEN BY DR. WALL. NO FURTHER CARE PROVIDED FOR PATIENT.
== END 2017-05-08 04:45 | disposition left against medical advice (07) ==
LOC: MED 04:10
DX: R44.3 Hallucinations, unspecified (principal); I10 Essential (primary) hypertension; Z53.21 Procedure and treatment not carried out due to patient leaving prior to being seen by health care provider; Z79.899 Other long term (current) drug therapy

== ENCOUNTER 2017-05-27 17:14 | Emergency (ER) | payer MEDICAID ==
[~2017-05-27] VITALS: Ht 167.6 cm; Wt 63.5 kg
[2017-05-27 17:26] VITALS: BP 153/98
[2017-05-27 18:39] VITALS: BP 153/98
[2017-05-28] MEDS ORDERED: OLAN5TAB30 PO (12:34)
== END 2017-05-27 18:39 | disposition home or self-care (01) ==
LOC: MED 17:14
DX: Z76.0 Encounter for issue of repeat prescription (principal); I10 Essential (primary) hypertension
CPT/HCPCS: 99283

== ENCOUNTER 2017-05-27 23:35 | Inpatient (IN) | payer MEDICAID ==
[~2017-05-27] VITALS: Ht 170.2 cm; Wt 68.5 kg
[2017-05-27 23:38] VITALS: BP 150/100
[2017-05-28] MEDS ORDERED: LORazepam 1 MG TAB PO ONE
[2017-05-28] MEDS ORDERED: HALOPERIDOL IM 5 MG/ML VIAL IM ONE
[2017-05-28 00:13] LABS: HEMATOCRIT 43.6 % (36-52); HEMOGLOBIN 13.8 g/dL (12.0-18.0); MEAN CORPUSCULAR HEMOGLOBIN 26 pg (27-31); MEAN CORPUSCULAR HGB CONC 32 g/dL (33-37); MEAN CORPUSCULAR VOLUME 84 fL (80-94); PLATELET COUNT (AUTO) 375 K/uL (140-450); RED BLOOD CELL COUNT(AUTO) 5.22 MIL/uL (4.20-6.10); WHITE BLOOD COUNT (AUTO) 6.3 K/uL (4.8-10.8)
[2017-05-28 00:28] LABS: ANION GAP 11.8 (8-16); BAND % (MANUAL) 0 % (0-8); CALCIUM 9.3 mg/dL (8.5-10.1); CARBON DIOXIDE 28.8 mmol/L (21-32); CHLORIDE 101 mmol/L (98-107); CREATININE 1.1 mg/dL (0.7-1.3); GFR ARICAN-AMERICAN 96 mL/min (>90); GFR NON ARICAN-AMERICAN 79 mL/min (>90); GLUCOSE 76 mg/dL (74-106); NEUTROPHILS % (MANUAL) 69 (43-65); POTASSIUM 3.6 mmol/L (3.5-5.1); SODIUM SERUM 138 mmol/L (136-145); UREA NITROGEN, BLOOD 19 mg/dL (7-18)
[2017-05-28 00:29] LABS: LYMPHOCYTES % (MANUAL) 30 % (20-46); MONOCYTES % (MANUAL) 1 % (5-12)
[2017-05-28 00:34] LABS: ACETAMINOPHEN < 0.5 ug/ml (10-30); ALANINE AMINOTRANSFERASE 36 U/L (16-63); ALBUMIN 4.5 g/dL (3.4-5.0); ALCOHOL, BLOOD < 3 mg/dL (<3); ALKALINE PHOSPHATASE 87 U/L (46-116); ASPARTATE AMINOTRANSFERASE 24 U/L (15-37); SALICYLATE < 2.8 mg/dL (2.8-20.0); TOTAL BILIRUBIN 0.9 mg/dL (0.0-1.0); TOTAL PROTEIN, SERUM 7.8 g/dL (6.4-8.2)
[2017-05-28 00:43] LABS: PROTHROMBIN TIME 10.5 secs (10.8-13.4)
[2017-05-28 00:50] LABS: AMPHETAMINE, URINE POS. ng/ml (NEG <=1000); BARBITURATE, URINE NEG. ng/ml (NEG <=200); BENZODIAZEPINE, URINE NEG. ng/mL (NEG <=200); CANNABINOID, URINE NEG. ng/mL (NEG <=50); COCAINE, URINE NEG. ng/mL (NEG <=300); OPIATE, URINE NEG. ng/mL (NEG <=2000); PHENCYCLIDINE SCREEN,URINE NEG. ng/mL (NEG <=25)
[2017-05-28] MEDS ORDERED: ACETAMINOPHEN 325 MG TAB PO PRN (01:25)
[2017-05-28] MEDS ORDERED: ONDANSETRON 4 MG/2 ML VIAL IM/IVP PRN (01:25)
[2017-05-28] MEDS ORDERED: HYDROcodone/APAP 7.5/325 MG 1 TAB PO PRN (01:25)
[2017-05-28] MEDS ORDERED: MORPHINE SULFATE 2 MG/ML SYR IVP PRN (01:25)
[2017-05-28] MEDS ORDERED: DOCUSATE SODIUM 100 MG GELCAP PO PRN (01:25)
[2017-05-28] MEDS ORDERED: NACL 0.9% 1,000 ML IV SCH (01:25)
[2017-05-28] MEDS ORDERED: ZIPRASIDONE 40 MG CAP PO STA (01:37)
[2017-05-28] MEDS ORDERED: ZIPRASIDONE 40 MG CAP ONE (02:04)
[2017-05-28 02:08] LABS: MAGNESIUM 2.2 mg/dL (1.8-2.4); PHOSPHORUS 3.5 mg/dL (2.5-4.9); THYROID STIMULATING HORMONE 0.75 uIU/mL (0.34-3.74)
[2017-05-28 02:30] VITALS: BP 128/95
[2017-05-28 02:30] LABS: APPEARANCE,URINE CLEAR (CLEAR); BILIRUBIN,URINE 1+ (NEGATIVE); BLOOD, URINE 2+ (NEGATIVE); COLOR,URINE YELLOW (YELLOW); LEUKOCYTE ESTERASE ,URINE NEGATIVE (NEGATIVE); NITRITE, URINE NEGATIVE (NEGATIVE); PH,URINE 5.5 (5.0-9.0); PROTEIN,URINE 1+ (NEGATIVE); UGLUCOSE NEGATIVE (NEGATIVE); UROBILINOGEN,URINE 0.2 EU/dL (0.2 - 1)
[2017-05-28 04:37] LABS: BACTERIA,URINE None Seen /HPF (None Seen); ICTOTEST NEGATIVE (NEGATIVE); SQUAMOUS EPITHELIAL CELL,UR None Seen /LPF (0-3 (FEW)); WBC,URINE 0-5 (RARE) /HPF (0-5)
[2017-05-28 08:00] VITALS: BP 126/76
[2017-05-28] MEDS ORDERED: OLANZapine 5 MG TAB PO SCH (09:00)
[2017-05-28] MEDS ORDERED: OLAN5TAB30 PO (12:34)
[2017-05-29 06:27] LABS: HEMOGLOBIN A1C 5.6 % (4.8-5.6); T4 (THYROXINE) 7.7 ug/dL (4.5-12.0)
== END 2017-05-28 14:00 | DRG 812 ==
LOC: MED 23:35 → MTU 05-28 01:25
PROVIDERS: ADMIT Family Medicine; ATTEND Family Medicine
DX: T43.622A Poisoning by amphetamines, intentional self-harm, initial encounter (principal); G92 Toxic encephalopathy; R45.851 Suicidal ideations; R45.850 Homicidal ideations; Z91.19 Patient's noncompliance with other medical treatment and regimen; F17.210 Nicotine dependence, cigarettes, uncomplicated; F25.0 Schizoaffective disorder, bipolar type; I10 Essential (primary) hypertension; Z60.2 Problems related to living alone; Z66 Do not resuscitate; Z88.8 Allergy status to other drugs, medicaments and biological substances; Z91.5 Personal history of self-harm; Z79.899 Other long term (current) drug therapy; Y92.89 Other specified places as the place of occurrence of the external cause
CPT/HCPCS: 36415; 71010; 80053; 80305; 81001; 83036; 83735; 83880; 84100; 84436; 84443; 84479; 84484; 85025; 85610; 93005; 99285; G0480; G0482; J1630

== ENCOUNTER 2017-06-27 20:30 | Emergency (ER) | payer MEDICAID ==
[~2017-06-27] VITALS: Ht 170.2 cm; Wt 68.0 kg
[~2017-06-27 20:30] MED LIST changes: -ATI2I IM/IVP; -Acetaminophen/Hydrocodone Bi PO; -LORA-476 PO; -MULT-405 PO; -OLAN5TAB29 PO; +OLAN5TAB30 PO; -ONDA2SOL80 IVP; -THIA100T25 PO; -TOR30I IM; -[UNRECOGNIZED DRUG - CODE] IVP
[2017-06-27 20:58] VITALS: BP 165/107
--- NOTE | 2017-06-27 22:00 | NUR ---
PATIENT TO ER BED 5.
--- NOTE | 2017-06-27 22:01 | NUR ---
37/M c/o dysuria x3 days. Denies any discharge. AOX4. Ambulatory with steady gait. VSS.
--- NOTE | 2017-06-27 22:07 | NUR ---
Pt taken to restroom to provide UA.
--- NOTE | 2017-06-27 22:15 | NUR ---
PATIENT BEING EVALUATED BY DR. GOLDSTEIN.
--- NOTE | 2017-06-27 23:28 | NUR ---
Patient discharged with v/s stable. Written and verbal after care instructions given and explained. Patient verbalized understanding. Ambulatory with steady gait. All questions addressed prior to discharge. Advised to follow up with PMD.
--- NOTE | 2017-06-27 23:30 | NUR ---
PT WAS WALKING OUT OF ER AFTER DISCHARGE, HE WROTE A NOTE ON BACK OF HIS DISCHARGE PAPERWORK STATING HE FELT HE WAS A DANGER TO HIMSELF AND OTHERS, HANDED NOTE TO ADMITTING PERSONNEL AND SAT DOWN. PT ESCORTED BACK TO BED 7 AND DENISE Nieves CALLED.
--- NOTE | 2017-06-28 00:13 | NUR ---
DENISE MADDOX HAS BEEN CALLED FOR EVAL.
--- NOTE | 2017-06-28 00:13 | NUR ---
PT SELF ADMIT BACK TO [facility]. WROTE A NOTE AND GAVE TO ER ADMITTING STATING " I FEEL I'M A THREAT TO OTHERS AND MYSELF, SOME CRAZY PERSON WALKED REAL FAST UPON ME I WAS LEAVING WITH A MASK OVER HIS FACE. I DONT KNOW HOW TO TAKE IT. IT MADE ME PARANOID BUT ALSO AGGRESSIVE AT THE SAME TIME I EED TO SIT FOR A WHILE BEFORE I LEAVE" ER MD DR GOLDSTEIN MADE AWARE. PT PLACED IN ER BED 7, SECURITY HAS BEEN CALLED FOR BELONGING AND PT HAS BEEN STRIPPED.
[2017-06-28 00:23] VITALS: BP 138/90
--- NOTE | 2017-06-28 01:00 | NUR ---
[place] [employer] AT BEDSIDE EVAL PT
--- NOTE | 2017-06-28 01:10 | NUR ---
[place] PD PLACED PT ON 5150 HOLD
[2017-06-28 01:36] LABS: APPEARANCE,URINE CLOUDY (CLEAR); BILIRUBIN,URINE NEGATIVE (NEGATIVE); BLOOD, URINE 1+ (NEGATIVE); COLOR,URINE YELLOW (YELLOW); LEUKOCYTE ESTERASE ,URINE NEGATIVE (NEGATIVE); NITRITE, URINE NEGATIVE (NEGATIVE); UGLUCOSE NEGATIVE (NEGATIVE)
[2017-06-28 01:42] LABS: BASOPHILS # (AUTO) 0.1 K/uL (0.00-0.22); BASOPHILS % (AUTO) 1.9 % (0.0-2.0); EOSINOPHILS # (AUTO) 0.2 K/uL (0-0.4); EOSINOPHILS % (AUTO) 2.6 % (0.0-4.0); HEMATOCRIT 41.5 % (36-52); HEMOGLOBIN 13.6 g/dL (12.0-18.0); LYMPHOCYTES # (AUTO) 2.4 K/uL (2.0-11.5); LYMPHOCYTES % (AUTO) 36.7 % (20.5-51.1); MEAN CORPUSCULAR HEMOGLOBIN 27 pg (27-31); MEAN CORPUSCULAR HGB CONC 33 g/dL (33-37); MEAN CORPUSCULAR VOLUME 83 fL (80-94); MONOCYTES # (AUTO) 0.5 K/uL (0.8-1.0); MONOCYTES % (AUTO) 6.9 % (1.7-9.3); NEUTROPHILS # (AUTO) 3.5 K/uL (1.8-7.7); NEUTROPHILS % (AUTO) 51.9 % (42.2-75.2); PLATELET COUNT (AUTO) 460 K/uL (140-450); RED BLOOD CELL COUNT(AUTO) 4.99 MIL/uL (4.20-6.10); RED CELL DISTRIBUTION WIDTH 14.9 % (11.6-13.7); WHITE BLOOD COUNT (AUTO) 6.7 K/uL (4.8-10.8)
[2017-06-28 01:46] LABS: ANION GAP 9.5 (8-16); CHLORIDE 103 mmol/L (98-107); GFR ARICAN-AMERICAN 107 mL/min (>90); GLUCOSE 93 mg/dL (74-106); POTASSIUM 4.5 mmol/L (3.5-5.1); SODIUM SERUM 138 mmol/L (136-145); UREA NITROGEN, BLOOD 14 mg/dL (7-18)
[2017-06-28 01:50] LABS: RBC,URINE 11-20 (MOD) /HPF (0-5)
[2017-06-28 01:52] LABS: ALBUMIN 4.1 g/dL (3.4-5.0); ASPARTATE AMINOTRANSFERASE 16 U/L (15-37); TOTAL BILIRUBIN 0.5 mg/dL (0.0-1.0)
[2017-06-28 01:53] LABS: BARBITURATE, URINE NEG. ng/ml (NEG <=200); BENZODIAZEPINE, URINE NEG. ng/mL (NEG <=200); CANNABINOID, URINE NEG. ng/mL (NEG <=50); COCAINE, URINE NEG. ng/mL (NEG <=300); OPIATE, URINE NEG. ng/mL (NEG <=2000); PHENCYCLIDINE SCREEN,URINE NEG. ng/mL (NEG <=25)
[2017-06-28 01:53] LABS: ACETAMINOPHEN < 0.5 ug/ml (10-30); SALICYLATE < 2.8 mg/dL (2.8-20.0)
--- NOTE | 2017-06-28 02:10 | NUR ---
Patient appears to be resting comfortably in bed. Vital Signs within normal limits. Respirations even and unlabored.
--- NOTE | 2017-06-28 03:14 | NUR ---
Patient appears to be resting comfortably in bed. Vital Signs within normal limits. Respirations even and unlabored.
--- NOTE | 2017-06-28 04:12 | NUR ---
Patient appears to be resting comfortably in bed. Vital Signs within normal limits. Respirations even and unlabored.
[2017-06-28 05:11] VITALS: BP 128/79
--- NOTE | 2017-06-28 05:11 | NUR ---
Patient appears to be resting comfortably in bed. Vital Signs within normal limits. Respirations even and unlabored.
--- NOTE | 2017-06-28 05:51 | NUR ---
PT RAN OUTSIDE ER DOORS. PD HAS BEEN NOTIFIED. ER MD DR PIMENTEL MADE AWARE
--- NOTE | 2017-06-28 05:51 | NUR ---
WHEN I WAS PREPARING TO DISCHARGE BED 8, I OVERHEARD THE ER DOUBLE DOORS OPEN ABRUPTLY. THAT IS WHEN I LOOKED AT BED 7 WHILE I WAS IN BED 8 AND NOTICED THE PT WAS NOT IN HIS BED. I THEN OPENED TO ER DOUBLE DOORS, RAN OUT THE ER AND SAW THE PT RUN UP THE PARKING LOT. DENISE MADDOX WAS NOTIFIED AND CAME ON SCENE.
--- NOTE | 2017-06-28 06:12 | NUR ---
[place] PD HERE AT [facility]
--- NOTE | 2017-06-28 06:15 | NUR ---
PD LOOKED AT VIDEO FOOTAGE OF PT TO GET A PHOTO OF THE PT. PD STATED TO NOT TOUCH ER BED 7 WHERE THE PT WAS ON A HOLD, BUT PD DID TAKE PT BLANKET.
--- NOTE | 2017-06-28 07:20 | NUR ---
PD JUST LEFT [place], STATING THE BED IS OK TO BE CLEANED.
== END 2017-06-28 05:51 | disposition left against medical advice (07) ==
LOC: MED 20:30
DX: R30.0 Dysuria (principal); R31.9 Hematuria, unspecified; Z88.8 Allergy status to other drugs, medicaments and biological substances; J45.909 Unspecified asthma, uncomplicated; I10 Essential (primary) hypertension; F20.9 Schizophrenia, unspecified
CPT/HCPCS: 36415; 80053; 80305; 81001; 82550; 84484; 85025; 87086; 99285; G0480; G0482

== ENCOUNTER 2017-10-02 23:22 | Emergency (ER) | payer MEDICAID ==
[~2017-10-02] VITALS: Ht 170.2 cm; Wt 68.0 kg
[2017-10-02 23:28] VITALS: BP 140/80
--- NOTE | 2017-10-03 02:00 | NUR ---
PT PLACED IN BED 11
--- NOTE | 2017-10-03 02:13 | NUR ---
Patient being evaluated by Dr. Barrios at bedside.
--- NOTE | 2017-10-03 02:13 | NUR ---
PT BIB [facility] C/O ANXIETY, SINCE YESTERDAY. PT DENIES N/V/D; SKIN IS INTACT, PINK/WARM/DRY; AAOX4, PERRL, WITH EVEN AND STEADY GAIT; LUNGS CLEAR BL, BREATHING UNLABORED; HR EVEN AND REGULAR, BL PERIPHERAL PULSES PRESENT; BS ACTIVE X4, NO TENDERNESS TO PALPATION. PT DENIES ANY FEVER, CP, SOB, OR COUGH AT THIS TIME; PT STATES 0/10 PAIN AT THIS TIME; VSS; PATIENT POSITIONED FOR COMFORT; HOB ELEVATED; BEDRAILS UP X2; BED DOWN.
[2017-10-03 02:14] VITALS: BP 133/78
--- NOTE | 2017-10-03 02:15 | NUR ---
Security called to bedside. Pt found yelling and becoming aggressive and agitated towards Dr. Barrios.
--- NOTE | 2017-10-03 02:17 | NUR ---
PT BEING EVALUATED BY ER MD MARTINEZ, PT STARTED YELLING AT DR DURING ASSESSMENT STATES "DO NOT TOUCH ME, YOU CANNOT TALK TO ME LIKE THAT. MOTHERFUCKER...." CALLED SECURITY,PT ESCORTED TO LOBBY
--- NOTE | 2017-10-03 02:21 | NUR ---
PT REFUSED TO SIGN DISCHARGE PAPERS AND LEFT WITHOUT DISCHARGED PAPERS
== END 2017-10-03 02:21 | disposition home or self-care (01) ==
LOC: MED 23:22
DX: F60.3 Borderline personality disorder (principal); F60.2 Antisocial personality disorder; J45.909 Unspecified asthma, uncomplicated; I10 Essential (primary) hypertension; Z88.8 Allergy status to other drugs, medicaments and biological substances
CPT/HCPCS: 99284

== ENCOUNTER 2017-11-16 03:12 | Inpatient (IN) | payer MEDICAID ==
[~2017-11-16] VITALS: Ht 175.3 cm; Wt 77.1 kg
[2017-11-16 03:17] VITALS: BP 171/118
--- NOTE | 2017-11-16 03:18 | NUR ---
PT.MAGGIE TO ER BED 3
--- NOTE | 2017-11-16 03:33 | NUR ---
37 y/o BIBA W/C/O ALCO. PT PLACED ON A 5150 HOLD BY [place] [employer] D/T SUICIDAL IDEATIONS. PT ALERT AND ORIENTED X 2. ELEVATED BP, AND HEART RATE, DENIES ANY CHEST PAIN. ER MD MADE AWARE.
[2017-11-16] MEDS ORDERED: LORazepam 1 MG TAB PO ONE ×2 (03:45→04:15)
--- NOTE | 2017-11-16 03:56 | NUR ---
PT RESTING IN BED, EMT BY BEDSIDE MONITOR PT.
--- NOTE | 2017-11-16 03:56 | NUR ---
Monitoring one to one at bedside
[2017-11-16] MEDS ORDERED: diphenhydrAMINE 50 MG CAP PO ONE (04:15)
--- NOTE | 2017-11-16 05:09 | NUR ---
Pt in bed in poc. Continues to have accelerated fanticiful speech. ED MD aware. continue to monitor.
[2017-11-16 05:10] LABS: BASOPHILS # (AUTO) 0.1 K/uL (0.00-0.22); BASOPHILS % (AUTO) 0.9 % (0.0-2.0); EOSINOPHILS # (AUTO) 0.1 K/uL (0-0.4); EOSINOPHILS % (AUTO) 0.8 % (0.0-4.0); HEMATOCRIT 38.8 % (36-52); HEMOGLOBIN 12.6 g/dL (12.0-18.0); LYMPHOCYTES # (AUTO) 2.4 K/uL (2.0-11.5); LYMPHOCYTES % (AUTO) 25.2 % (20.5-51.1); MEAN CORPUSCULAR HEMOGLOBIN 27 pg (27-31); MEAN CORPUSCULAR HGB CONC 33 g/dL (33-37); MEAN CORPUSCULAR VOLUME 82 fL (80-94); MONOCYTES # (AUTO) 0.4 K/uL (0.8-1.0); MONOCYTES % (AUTO) 4.7 % (1.7-9.3); NEUTROPHILS # (AUTO) 6.4 K/uL (1.8-7.7); NEUTROPHILS % (AUTO) 68.4 % (42.2-75.2); PLATELET COUNT (AUTO) 329 K/uL (140-450); RED BLOOD CELL COUNT(AUTO) 4.71 MIL/uL (4.20-6.10); RED CELL DISTRIBUTION WIDTH 15.8 % (11.6-13.7); WHITE BLOOD COUNT (AUTO) 9.4 K/uL (4.8-10.8)
[2017-11-16] MEDS ORDERED: LORazepam 2 MG/ML VIAL IVP ONE (05:20)
[2017-11-16] MEDS ORDERED: diphenhydrAMINE 50 MG/ML VIAL IVP ONE (05:20)
--- NOTE | 2017-11-16 05:26 | NUR ---
Pt in bed, eyes close, and resting in poc. ER MD aware. Continue to monitor.
[2017-11-16 05:28] LABS: ALBUMIN 4.1 g/dL (3.4-5.0); ANION GAP 14.8 (8-16); ASPARTATE AMINOTRANSFERASE 38 U/L (15-37); CARBON DIOXIDE 25.4 mmol/L (21-32); CHLORIDE 107 mmol/L (98-107); GFR ARICAN-AMERICAN 107 mL/min (>90); GLUCOSE 81 mg/dL (74-106); POTASSIUM 4.2 mmol/L (3.5-5.1); SODIUM SERUM 143 mmol/L (136-145); TOTAL BILIRUBIN 0.7 mg/dL (0.0-1.0); UREA NITROGEN, BLOOD 23 mg/dL (7-18)
[2017-11-16 05:29] LABS: ACETAMINOPHEN < 0.5 ug/ml (10-30); SALICYLATE < 2.8 mg/dL (2.8-20.0)
[2017-11-16 05:42] LABS: BARBITURATE, URINE NEGATIVE ng/ml (NEG <=200); BENZODIAZEPINE, URINE NEGATIVE ng/mL (NEG <=200); COCAINE, URINE NEGATIVE ng/mL (NEG <=300)
[2017-11-16 05:43] LABS: CANNABINOID, URINE POSITIVE ng/mL (NEG <=50); OPIATE, URINE NEGATIVE ng/mL (NEG <=2000); PHENCYCLIDINE SCREEN,URINE NEGATIVE ng/mL (NEG <=25)
--- NOTE | 2017-11-16 06:00 | NUR ---
Pt in bed in poc. Sitter at bedside. VSS. ER MD aware. Continue to monitor.
--- NOTE | 2017-11-16 07:10 | NUR ---
received report from luis russ. multiple small brasion & dry wounds at scalp. Patient appears to be sleepng comfortably in bed. bp 125/78, p 90/min, o2 sat 97%, Respirations even and unlabored.will continue to monitor. Addendum: 11/16/17 at 1221 by [facility] TOOK PICTURE TO ABASION SCALP.
--- NOTE | 2017-11-16 11:08 | NUR ---
Patient being evaluated by DR LARA at bedside. Addendum: 11/16/17 at 1137 by MED1 PT AWAKE & EATING.
--- NOTE | 2017-11-16 12:27 | NUR ---
Patient being reevaluated by DR LARA at bedside. Addendum: 11/16/17 at 1410 by MED1 PT TAKING NONSTOP.
[2017-11-16] MEDS ORDERED: NACL 0.9% 1,000 ML IV SCH (12:56)
[2017-11-16] MEDS ORDERED: MORPHINE SULFATE 2 MG/ML SYR IVP PRN (13:00)
[2017-11-16] MEDS ORDERED: OLANZapine 5 MG TAB PO SCH (13:00)
[2017-11-16] MEDS ORDERED: HYDROcodone/APAP 7.5/325 MG 1 TAB PO PRN (13:00)
[2017-11-16] MEDS ORDERED: ONDANSETRON 4 MG/2 ML VIAL IM/IVP PRN (13:00)
[2017-11-16] MEDS ORDERED: DOCUSATE SODIUM 100 MG GELCAP PO PRN (13:00)
[2017-11-16] MEDS ORDERED: ACETAMINOPHEN 325 MG TAB PO PRN (13:00)
--- NOTE | 2017-11-16 13:53 | NUR ---
CALLED [facility]; RN STATES WAITING FOR COMPUTER SYSTEMS MANAGER TO CLEAR ROOM FOR 5150 HOLD.
--- NOTE | 2017-11-16 14:05 | NUR ---
PT ARRIVED ON THE UNIT WITH 2 ER NURSES. PT IS AWAKE AND ORIENTED. PT IS AMBULATORY W/ STEADY GAIT. HE AMBULATED FROM GURNEY TO BED. ALSO AMBULATED TO THE BATHROOM. PT IS ON ROOM AIR. V/S STABLE. IV R AC 20G SL. SKIN INTACT. REQUESTED JUICE AND LUNCH. PER PT, HE'S AN ALCOHOLIC AND NEEDS TO EAT AND SNACK REGULARLY. SITTER IN THE ROOM. WILL CONTINUE TO MONITOR PT.
--- NOTE | 2017-11-16 14:10 | NUR ---
Patient will be admitted to care of DR BENAVIDES. Admited to TELE. Will go to room 123B. Belongings list completed. Report to HILLARY FISCHER.
[2017-11-16 14:53] VITALS: BP 156/99
--- NOTE | 2017-11-16 15:09 | NUR ---
PT BEING DISRUPTIVE. WANTS TO GET OUT OF HERE. ASKING FOR THE NOTIFIED SECURITY. NOTIFIED . WILL CONTINUE TO MONITOR PT.
--- NOTE | 2017-11-16 15:40 | NUR ---
UNABLE TO PROCEED WITH EKG PATIENT DISRUPTIVE DR. FAY BERMUDEZ IN ROOM
--- NOTE | 2017-11-16 15:44 | NUR ---
PT INSISTS ON GOING HOME. DR MACDONALD AND AIDAN SPOKE TO PT EXTENSIVELY. TOYA [place] AGREES, WE CAN'T KEEP HIM ELOISE IF HE WANTS TO GO. REMOVED IV. SECURITY WENT TO GET HIS CLOTHES. ONCE HE LEAVES, WE WILL CALL THE POLICE DEPT PER PROTOCOL.
--- NOTE | 2017-11-16 15:59 | NUR ---
PT ELOPED. GATHERED HIS PERSONAL BELONGINGS. PT IS NOT COMPLIANT, AGGRESSIVE, AND AGITATED. REFUSED TO STAY. WE WILL CALL THE POLICE.
[2017-11-16 16:00] VITALS: BP 156/99
--- NOTE | 2017-11-16 16:04 | NUR ---
PT ELOPED THRU [facility] EXIT DOOR. PT WAS AGGRESSIVE, AGITATED AND REFUSED TO STAY.WILLIAMMUSEUM CURATOR AND SECURITY NOTIFIED. DENISE MADDOX CALLED ([phone]) AND SPOKE WITH BIBI WALKER POLICE DISPATCH ANS STATED SHE WILL LET THE PD KNOW.
--- NOTE | 2017-11-16 16:20 | NUR ---
DENISE PD CAME AND STATED THEY FOUND PT IN [facility]. PD ASKED FOR THE ORIGINAL 5150 FORM AND PROVIDED PD THE NEEDED FORM, STATED THEY WILL BRING PT TO [facility]. DEANDRE-HILLARY CREW CHIEF NOTIFIED.
[2017-11-16 18:14] LABS: PROTHROMBIN TIME 9.4 secs (10.8-13.4)
--- NOTE | 2017-11-17 14:41 | NUR ---
CM NOTE RETRO REVIEW FAXED TO [facility] / FAX# [phone]
== END 2017-11-16 16:00 | disposition left against medical advice (07) | DRG 812 ==
LOC: MED 03:12 → MTU 12:56
PROVIDERS: ADMIT Family Medicine; ATTEND Family Medicine
DX: T43.622A Poisoning by amphetamines, intentional self-harm, initial encounter (principal); N17.0 Acute kidney failure with tubular necrosis; G92 Toxic encephalopathy; F15.10 Other stimulant abuse, uncomplicated; I10 Essential (primary) hypertension; J45.909 Unspecified asthma, uncomplicated; E66.3 Overweight; F25.0 Schizoaffective disorder, bipolar type; Z91.19 Patient's noncompliance with other medical treatment and regimen; Z88.8 Allergy status to other drugs, medicaments and biological substances; Z53.21 Procedure and treatment not carried out due to patient leaving prior to being seen by health care provider; F12.20 Cannabis dependence, uncomplicated; Z59.0 Homelessness; Z68.25 Body mass index [BMI] 25.0-25.9, adult; Y92.89 Other specified places as the place of occurrence of the external cause
CPT/HCPCS: 36415; 80053; 80305; 85025; 85610; 87081; 99285; G0480; G0482; Q0163

== ENCOUNTER 2018-02-03 22:48 | Emergency (ER) | payer MEDICAID ==
[~2018-02-03] VITALS: Ht 170.2 cm; Wt 66.3 kg
[2018-02-03 23:00] VITALS: BP 164/93
[2018-02-03 23:51] VITALS: BP 150/81
== END 2018-02-03 23:51 | disposition home or self-care (01) ==
LOC: MED 22:48
DX: F31.9 Bipolar disorder, unspecified (principal); J45.909 Unspecified asthma, uncomplicated; I10 Essential (primary) hypertension; Z88.8 Allergy status to other drugs, medicaments and biological substances; Z76.0 Encounter for issue of repeat prescription
CPT/HCPCS: 99283

== ENCOUNTER 2018-02-06 20:04 | Inpatient (IN) | payer MEDICAID ==
[~2018-02-06] VITALS: Ht 170.2 cm; Wt 67.6 kg
[2018-02-06 20:08] VITALS: BP 189/124
--- NOTE | 2018-02-06 20:17 | NUR ---
PT TAKEN TO BED 4
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
--- NOTE | 2018-02-06 20:31 | NUR ---
Dr. Pat evaluating patient.
[2018-02-06] MEDS ORDERED: OLANZapine 5 MG TAB PO SCH ×2 (20:45→22:40)
[2018-02-06 21:07] LABS: BASOPHILS % (AUTO) 0.6 % (0.0-2.0); EOSINOPHILS # (AUTO) 0.1 K/uL (0-0.4); EOSINOPHILS % (AUTO) 1.1 % (0.0-4.0); HEMATOCRIT 40.8 % (36-52); HEMOGLOBIN 13.1 g/dL (12.0-18.0); LYMPHOCYTES # (AUTO) 1.8 K/uL (2.0-11.5); LYMPHOCYTES % (AUTO) 32.2 % (20.5-51.1); MEAN CORPUSCULAR HEMOGLOBIN 27 pg (27-31); MEAN CORPUSCULAR HGB CONC 32 g/dL (33-37); MEAN CORPUSCULAR VOLUME 83.2 fL (80-94); MONOCYTES # (AUTO) 0.3 K/uL (0.8-1.0); NEUTROPHILS # (AUTO) 3.3 K/uL (1.8-7.7); NEUTROPHILS % (AUTO) 61.1 % (42.2-75.2); PLATELET COUNT (AUTO) 366 K/uL (140-450); WHITE BLOOD COUNT (AUTO) 5.5 K/uL (4.8-10.8)
--- NOTE | 2018-02-06 21:09 | NUR ---
HILLARY DRAKE AT BEDSIDE FOR 5150 EVAL
--- NOTE | 2018-02-06 21:15 | NUR ---
Evaluated pt for [address] Pat's request, and found pt to meet criteria for 5150 hold as a danger to others. Notified Dr Pat.
[2018-02-06 21:16] LABS: ANION GAP 11.7 (8-16); CARBON DIOXIDE 27.4 mmol/L (21-32); CHLORIDE 105 mmol/L (98-107); CREATININE 0.9 mg/dL (0.7-1.3); GFR ARICAN-AMERICAN 121 mL/min (>90); GLUCOSE 114 mg/dL (74-106); POTASSIUM 4.1 mmol/L (3.5-5.1); SODIUM SERUM 140 mmol/L (136-145); UREA NITROGEN, BLOOD 12 mg/dL (7-18)
--- NOTE | 2018-02-06 22:00 | NUR ---
Pt in bed resting. Sitter at bedside. VSS. Pt calm. ER MD aware. Continue to monitor.
[2018-02-06 22:05] LABS: ALBUMIN 3.9 g/dL (3.4-5.0); ASPARTATE AMINOTRANSFERASE 34 U/L (15-37); TOTAL BILIRUBIN 0.4 mg/dL (0.0-1.0)
[2018-02-06] MEDS ORDERED: OLANZapine 5 MG TAB ONE (22:08)
--- NOTE | 2018-02-06 22:15 | NUR ---
Meal provided without utensils. Utensils no needed. Pt ate and expressed gratitiude. Continue to monitor.
--- NOTE | 2018-02-06 23:00 | NUR ---
Pt in bed resting. Sitter at bedside. VSS. Pt calm. ER MD aware. Continue to monitor.
[2018-02-06 23:17] LABS: APPEARANCE,URINE CLEAR (CLEAR); BILIRUBIN,URINE NEGATIVE (NEGATIVE); BLOOD, URINE NEGATIVE (NEGATIVE); COLOR,URINE YELLOW (YELLOW); LEUKOCYTE ESTERASE ,URINE NEGATIVE (NEGATIVE); NITRITE, URINE NEGATIVE (NEGATIVE); PH,URINE 5.5 (5.0-9.0); UGLUCOSE NEGATIVE (NEGATIVE)
[2018-02-06 23:27] LABS: BARBITURATE, URINE NEG. ng/ml (NEG <=200); BENZODIAZEPINE, URINE NEG. ng/mL (NEG <=200); CANNABINOID, URINE NEG. ng/mL (NEG <=50); COCAINE, URINE NEG. ng/mL (NEG <=300); OPIATE, URINE NEG. ng/mL (NEG <=2000); PHENCYCLIDINE SCREEN,URINE NEG. ng/mL (NEG <=25)
[2018-02-06 23:35] LABS: RBC,URINE 11-20 (MOD) /HPF (0-5)
[2018-02-06 23:36] LABS: CALCIUM OXALATE CRYSTALS,UR 0-10 /HPF (None Seen)
--- NOTE | 2018-02-07 | NUR ---
Pt in bed resting. Sitter at bedside. VSS. Pt calm. ER MD aware. Continue to monitor.
--- NOTE | 2018-02-07 00:58 | NUR ---
Noted [employer] insurance is [facility]. The following contacts were made on 02/07/2018; 0039 hrs [facility] - spoke with Barry. No available beds at this time. Check back in the morning. 0042 hrs [facility] - spoke with stefani Antoine. No beds available. 0045 hrs [facility] - spoke with stefani Jorge supervisor aircraft maintenance. Jefe, no beds. 004 hrs [facility] - spoke with Jody. She requested fax pt chart for consideration to . Complied to her request. She will call when bed is available. 0052 hrs [facility] - spoke with stefani Pettit. No beds available at this time. Discharges at 12 noon. Please call at 1 or 2 pm today for bed availability. Johnson Rosales, Kindergarten Prep Teacher [facility]
--- NOTE | 2018-02-07 01:00 | NUR ---
Pt in bed resting. Sitter at bedside. VSS. Pt calm. ER MD aware. Continue to monitor.
--- NOTE | 2018-02-07 02:00 | NUR ---
Pt in bed resting. Sitter at bedside. VSS. Pt calm. ER MD aware. Continue to monitor.
--- NOTE | 2018-02-07 03:00 | NUR ---
Pt in bed resting. Sitter at bedside. VSS. Pt calm. ER MD aware. Continue to monitor.
[2018-02-07] MEDS ORDERED: HYDROcodone/APAP 5/325 MG 1 TAB TAB PO PRN (04:05)
[2018-02-07] MEDS ORDERED: ONDANSETRON 4 MG/2 ML VIAL IVP PRN (04:05)
[2018-02-07] MEDS ORDERED: LORazepam 2 MG/ML VIAL IVP PRN (04:05)
[2018-02-07] MEDS ORDERED: ACETAMINOPHEN 325 MG TAB PO PRN (04:05)
[2018-02-07 04:40] VITALS: BP 143/94
--- NOTE | 2018-02-07 04:40 | NUR ---
REPORT GIVEN AND CARE TRANSFERED TO ROBERT RN, ROOM 109B, STRANSPORTED VIA GURNEY WITH VSS. MOOD CALM, PT COOPERATIVE.
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
--- NOTE | 2018-02-07 05:00 | NUR ---
MRSA AND URINE SAMPLE COLLECTED. PT BACK IN BED AND WANTING TO SLEEP. WILL CONTINUE TO MONITOR.
--- NOTE | 2018-02-07 05:53 | NUR ---
PT CONTINUES TO SLEEP AT THIS TIME. WILL CONTINUE TO MONITOR.
--- NOTE | 2018-02-07 06:15 | NUR ---
ENDORSED PT CARE TO DAY SHIFT NURSE DEDRICK FOR CONTINUITY OF CARE. PT IN STABLE CONDITION.
--- NOTE | 2018-02-07 06:15 | NUR ---
ASSUMED CONTINUITY OF CARE. NO SIGNS AND SYMPTOMS OF ACUTE DISTRESS NOTICED. SLEEPING IN COMFORTABLE POSITION AT THIS TIME. KEEP ENVIRONMENT SAFE. CLOSELY MONITORED 1:1.
--- NOTE | 2018-02-07 07:18 | NUR ---
[facility] AWARE PATIENT HAS BEEN MOVED TO TELE UNIT IN [facility]. WILL CONTINUE TO FIND PLACEMENT FOR PATIENT THROUGH OUT THE DAY FOR 5150 PLACEMENT. WILL UPDATE WHEN AVAILABLE.
--- NOTE | 2018-02-07 07:40 | NUR ---
Patient's Plan of Care was discussed and reviewed with IP NETWORK ARCHITECT: SALOMÓN.
[2018-02-07 08:00] VITALS: BP 139/85
--- NOTE | 2018-02-07 08:07 | NUR ---
PATIENT HAS BEEN SCREENED AND CATEGORIZED LOW RISK. PATIENT WILL BE SEEN WITHIN 7 DAYS OF ADMISSION. 02/14/[address], [facility]
[2018-02-07] MEDS: OLANZapine 5 MG TAB PO SCH (08:54)
--- NOTE | 2018-02-07 09:19 | NUR ---
SIRISHA BOLANOS WENT INSIDE PT. ROOM AND SPOKE TO PT. AT BEDSIDE. PT. CALM, AND COOPERATIVE. NO ABNORMAL BEHAVIOR OBSERVED. INFORMED SIRISHA BOLANOS THAT PT. MEDICAL INFORMATION WAS ALREADY FAXED TO DR. SANDERS, AND DR. SANDERS HASN'T SHOW UP YET FOR CONSULT.
[2018-02-07 12:00] VITALS: BP 139/89
--- NOTE | 2018-02-07 14:24 | NUR ---
call center cont to work on placement for this pt
--- NOTE | 2018-02-07 15:20 | NUR ---
WENT TO BATHROOM. HAD STEADY GAIT AND BALANCE. NO C/O PAIN. NO SOB, NOTED. KEEP FREE FROM INJURY. CONTINUE TO MONITOR 1:1.
--- NOTE | 2018-02-07 16:42 | NUR ---
[facility] AWARE PT IS CONT TO LOOK FOR PLACEMENT. NO UPDATE ON BED PLACEMENT. FAXED OVER PAPERWORK TO [facility], [facility] AND REFAXXED PAPERWORK TO [facility]. UPDATE ON PATIENTS PAPERWORK RECEIVED FROM CASE MGMT.
--- NOTE | 2018-02-07 17:15 | NUR ---
PAGED DR. SANDERS AT , LEFT PT. MEDICAL INFORMATION, MESSAGE AND CALL BACK NUMBER REGARDING PT. CONSULT. INFORMED CHARGE NURSE ERNIE MCKEON. Addendum: 02/07/18 at 1820 by Rom Cramer LVN ENTERED WRONG TIME. ACTUAL TIME WAS 1814.
--- NOTE | 2018-02-07 17:37 | NUR ---
DINNER TRAY SERVED. CALM AND COOPERATIVE. NO ABNORMAL BEHAVIOR NOTICED. CONTINUE TO MONITOR 1:1.
--- NOTE | 2018-02-07 18:52 | NUR ---
CHART FAXED OVER TO [facility] AND [facility] FOR REVIEW. WILL ENDORSE TO LEAD SHOP OPERATOR FOR FURTHER UPDATE AND CONT SEARCH FOR PLACEMENT
--- NOTE | 2018-02-07 19:12 | NUR ---
BEDSIDE REPORT GIVEN TO IAN MCKEON. IN STABLE CONDITION. ANTIL -RETIREMENT ADMINISTRATOR CLOSELY MONITORED PT. 1:1.
--- NOTE | 2018-02-07 19:13 | NUR ---
RECEIVED BEDSIDE REPORT FROM DAY SHIFT NURSE DEBBIE THORNTON, PT STABLE, NO DISTRESS NOTED, PT HAS NO IV ACCESS, ON ROOM AIR NO SOB, PT SLEEPING CALMLY ON BED, 1:1 SITTER BY BEDSIDE, INITIAL ASSESSMENT DONE, ALL SAFETY PRECAUTION MET, WILL CONTINUE TO MONITOR.
--- NOTE | 2018-02-07 22:49 | NUR ---
PT STATED HAVING A TOOTHACHE, PAIN MEDICATION GIVEN, PT TOLERATED WELL, NO DISTRESS NOTED, CALL LIGHT WITHIN REACH, WILL CONTINUE TO MONITOR.
--- NOTE | 2018-02-07 23:44 | NUR ---
CHECKED ON PT, PT SLEEPING, NO DISTRESS NOTED, CALL LIGHT WITHIN REACH, WILL CONTINUE TO MONITOR.
[2018-02-08] VITALS: BP 137/81
--- NOTE | 2018-02-08 02:02 | NUR ---
PT AMBULATED TO RESTROOM AND BACK TO BED, NO DISTRESS NOTED, CALL LIGHT WITHIN REACH, WILL CONTINUE TO MONITOR. Addendum: 02/08/18 at 0204 by Valery Zhao RN 1:1 SITTER AT BEDSIDE
--- NOTE | 2018-02-08 04:30 | NUR ---
PT SLEEPING, NO DISTRESS NOTED, 1:1 SITTER BY BEDSIDE, WILL CONTINUE TO MONITOR.
--- NOTE | 2018-02-08 07:12 | NUR ---
ENDORSED PLAN OF CARE TO DAY SHIFT NURSE EH RN, FOR CONTINUOUS OF CARE, PT STABLE, NO DISTRESS NOTED, 1:1 SITTER BY BEDSIDE.
--- NOTE | 2018-02-08 07:14 | NUR ---
RECEIVED BEDSIDE REPORT FROM HEEL PAINTER NURSE. PATIENT IS AWAKE, ALERT AND ORIENTEDX4. NO SIGNS OF DISTRESS ON ROOM AIR. PATIENT STATES HE STILL FEELS SUICIDAL. SITTER IN PLACE. HE IS AMBULATORY. AWAITING DR SANDERS FOR PSYCH CONSULT. BED IN LOW POSITION. CALL LIGHT WITHIN REACH. WILL CONTINUE TO MONITOR THE PATIENT.
[2018-02-08 08:00] VITALS: BP 157/94
[2018-02-08 08:13] LABS: BASOPHILS % (AUTO) 0.5 % (0.0-2.0); EOSINOPHILS # (AUTO) 0.2 K/uL (0-0.4); EOSINOPHILS % (AUTO) 3.3 % (0.0-4.0); HEMATOCRIT 41.6 % (36-52); HEMOGLOBIN 13.3 g/dL (12.0-18.0); LYMPHOCYTES # (AUTO) 2.8 K/uL (2.0-11.5); LYMPHOCYTES % (AUTO) 44.7 % (20.5-51.1); MEAN CORPUSCULAR HEMOGLOBIN 27 pg (27-31); MEAN CORPUSCULAR HGB CONC 32 g/dL (33-37); MEAN CORPUSCULAR VOLUME 83.3 fL (80-94); MONOCYTES # (AUTO) 0.4 K/uL (0.8-1.0); NEUTROPHILS # (AUTO) 2.8 K/uL (1.8-7.7); NEUTROPHILS % (AUTO) 44.5 % (42.2-75.2); PLATELET COUNT (AUTO) 383 K/uL (140-450); RED BLOOD CELL COUNT(AUTO) 4.99 MIL/uL (4.20-6.10); RED CELL DISTRIBUTION WIDTH 16.1 % (11.6-13.7); WHITE BLOOD COUNT (AUTO) 6.2 K/uL (4.8-10.8)
[2018-02-08 08:51] LABS: ANION GAP 8.5 (8-16); CARBON DIOXIDE 28.3 mmol/L (21-32); CREATININE 0.9 mg/dL (0.7-1.3); POTASSIUM 3.8 mmol/L (3.5-5.1)
--- NOTE | 2018-02-08 09:10 | NUR ---
STUDENT NURSE, RANDI, PASSED MORNING MED W TEACHER. PATIENT TOLERATED MED WELL. NO COMPLAINTS AT THIS TIME. BED IN LOW POSITION. CALL LIGHT WITHIN REACH. WILL CONTINUE TO MONITOR THE PATIENT.
[2018-02-08] MEDS: OLANZapine 5 MG TAB PO SCH (09:13)
--- NOTE | 2018-02-08 09:57 | NUR ---
[facility]IN [facility] AWARE PATIENT IS STILL IN THE TELE UNIT. NO UPDATES ON CONTACTED FACILITIES AT THIS TIME, CHART STILL IN REVIEW. WILL CONTINUE TO UPDATE CHART WITH NEWS WHEN ANYTHING ARRIVES.
--- NOTE | 2018-02-08 10:45 | NUR ---
PATIENT IS SLEEPING. NO SIGNS OF DISTRESS ON ROOM AIR. BED IN LOW POSITION. CALL LIGHT WITHIN REACH. 1:1 SITTER
--- NOTE | 2018-02-08 12:27 | NUR ---
Social Service Note: Note for 12/10/17: I faxed patient's clinical information, copy of hold, and demographics to [facility], phone number , fax .
--- NOTE | 2018-02-08 12:33 | NUR ---
PATIENT STILL SLEEPING. LUNCH IS AT BEDSIDE. NO SIGNS OF DISTRESS. BED IN LOW POSITION. CALL LIGHT WITHIN REACH. WILL CONTINUE TO MONITOR THE PATIENT.
--- NOTE | 2018-02-08 12:33 | NUR ---
1:1 SITTER AT BEDSIDE.
--- NOTE | 2018-02-08 14:15 | NUR ---
PATIENT IS SLEEPING. NO SIGNS OF DISTRESS ON ROOM AIR. BED IN LOW POSITION. CALL LIGHT WITHIN REACH. WILL CONTINUE TO MONITOR THE PATIENT. 1:1 SITTER IS AT BEDSIDE.
[2018-02-08 16:00] VITALS: BP 142/95
--- NOTE | 2018-02-08 16:15 | NUR ---
REINA CALLED ME TO ASSESS THE PATIENT. REINA SAID HE CAME OUT OF THE RESTROOM AND HE CAME BACK KICKING THE BED. PATIENTS LEGS ARE CONTRACTED, ASKED HIM WHAT WAS WRONG HE SAID HE IS HAVING MUSCLE SPASMS. HE HAS MUSCLE SPASMS BEFORE. PATIENT IS SWEATING PROFUSELY. B/P IS 150/103 HR 86 RR26 TEMP 94 AND O2SAT IS 97%. BS IS 80. CALLED DOCTOR ALBERT AND RAPID RESPONSE TEAM.
--- NOTE | 2018-02-08 16:25 | NUR ---
RAPID RESPONSE CAME IN. INSERTED AN IV 20 G IN L FOREARM. NO MEDS ADMINISTERED AT THIS TIME. IV IS CLEAN, DRY AND INTACT. DOCTOR SAID TO ADMINISTER A ONE TIME DOSE OF BENADRYL AND HE SAID TO CALL BACK WITH THE RESULTS OF THE 12 LEAD EKG.
--- NOTE | 2018-02-08 16:27 | NUR ---
PATIENT IS NOW ON TELE. MUSCLE SPASMS HAS ENDED. BODY IS NO LONG CONTRACTED. SWEATING HAS STOPPED. BED IN LOW POSITION. CALL LIGHT WITHIN REACH. WILL CONTINUE TO MONITOR THE PATIENT.
[2018-02-08] MEDS ORDERED: diphenhydrAMINE 50 MG/ML VIAL IVP SCH (16:30)
[2018-02-08] MEDS ORDERED: diphenhydrAMINE 50 MG/ML VIAL IVP PRN (16:30)
--- NOTE | 2018-02-08 16:30 | NUR ---
DOCTOR ALBERT CALLED BACK. TOLD HIM THE EKG WAS NORMAL AND THAT THE PATIENT MAY BE EXPERIENCING WITHDRAWAL. LAST METH USE WAS 2 DAYS AGO AND THE PATIENT SAID HE USES "$10" WORTH OF METH. DOCTOR SAID TO ADMINISTER THE ATIVAN ORDER WHEN SIGNS OF WITHDRAWAL ARE SEEN. PATIENT RECEIVED BENADRYL, WILL ADMINISTER ATIVAN IF SIGNS OF WITHDRAWAL ARE SEEN.
--- NOTE | 2018-02-08 17:33 | NUR ---
NO UPDATE ON VACANCIES ON CONTACTED FACILITIES. [facility] IS AWARE PT IS IN TELEMETRY UNIT. WILL ENDORSE TO SLITTER CUT OFF OPERATOR TO CONTINUE WITH FINDING PLACEMENT.
--- NOTE | 2018-02-08 17:49 | NUR ---
PATIENT IS SLEEPING. NO SIGNS OR SYMPTOMS OF DISTRESS. BED IN LOW POSITION. CALL LIGHT WITHIN REACH. 1:1 SITTER.
--- NOTE | 2018-02-08 19:08 | NUR ---
GAVE BEDSIDE REPORT TO TEACHER PRIVATE NURSE. PATIENT IS ENDORSED IN STABLE CONDITION.
--- NOTE | 2018-02-08 19:10 | NUR ---
RECEIVED PATIENT LYING ASLEEP IN BED. BED IN LOW POSITION. CALL LIGHT WITHIN REACH. PATIENT IS IN 1:1 SITTER. WILL CONTINUE TO MONITOR.
[2018-02-08 20:00] VITALS: BP 139/86
--- NOTE | 2018-02-08 21:31 | NUR ---
At this time there are no vacancy at the following facilities [facility] , [facility], [facility] , and [facility] . Will continue calling for placement thru the shift.
--- NOTE | 2018-02-08 23:27 | NUR ---
SEEN PATIENT ASLEEP IN BED BUT EASILY AROUSABLE.. BED IN LOW POSITION. 1:1 SITTER FOR SAFETY. WILL CONTINUE TO MONITOR.
[2018-02-09] VITALS (7 sets, daily range): BP systolic 134–155; BP diastolic 77–97
--- NOTE | 2018-02-09 02:39 | NUR ---
Still calling for placement , no vacancy at this time.
--- NOTE | 2018-02-09 03:35 | NUR ---
PATIENT LYING IN BED ASLEEP WATCHING BY A SITTER. BED IN LOW POSITION.
--- NOTE | 2018-02-09 06:03 | NUR ---
1:1 SITTER CONSTANT MONITORING AND SUICIDAL PRECAUTION.
[2018-02-09 07:04] LABS: BASOPHILS % (AUTO) 0.6 % (0.0-2.0); EOSINOPHILS # (AUTO) 0.1 K/uL (0-0.4); HEMATOCRIT 42.9 % (36-52); LYMPHOCYTES # (AUTO) 2.3 K/uL (2.0-11.5); LYMPHOCYTES % (AUTO) 35.4 % (20.5-51.1); MEAN CORPUSCULAR HEMOGLOBIN 27 pg (27-31); MEAN CORPUSCULAR HGB CONC 33 g/dL (33-37); MEAN CORPUSCULAR VOLUME 83.2 fL (80-94); MONOCYTES # (AUTO) 0.4 K/uL (0.8-1.0); MONOCYTES % (AUTO) 6.1 % (1.7-9.3); NEUTROPHILS # (AUTO) 3.7 K/uL (1.8-7.7); NEUTROPHILS % (AUTO) 55.9 % (42.2-75.2); PLATELET COUNT (AUTO) 392 K/uL (140-450); RED BLOOD CELL COUNT(AUTO) 5.16 MIL/uL (4.20-6.10); WHITE BLOOD COUNT (AUTO) 6.6 K/uL (4.8-10.8)
--- NOTE | 2018-02-09 07:21 | NUR ---
ENDORSEMENT GIVEN TO AM SHIFT NURSE FOR CONTINUITY OF CARE. PATIENT IN STABLE CONDITION.
--- NOTE | 2018-02-09 07:22 | NUR ---
REPORT RECEIVED FROM KENY, PT SLEEPING QUIETLY IN NAD, RESP EVEN UNLABORED ON RA, SKIN WARM DRY COLOR WNL, DENIES PAIN OR DISCOMFORT, NO IMMEDIATE NEEDS AT THIS TIME, PT ON 5150 WITH 1:1 SITTER AT BEDSIDE, WILL CONTINUE TO MONITOR. Addendum: 02/09/18 at 0751 by Tereza Bar RN PLAN OF CARE REVIEWED
[2018-02-09 07:29] LABS: ANION GAP 10.7 (8-16); CARBON DIOXIDE 27.4 mmol/L (21-32); CREATININE 0.9 mg/dL (0.7-1.3); POTASSIUM 4.1 mmol/L (3.5-5.1)
[2018-02-09] MEDS: OLANZapine 5 MG TAB PO SCH (09:19)
--- NOTE | 2018-02-09 09:23 | NUR ---
0900 MEDICATION GIVEN. PT TOLERATED WELL. PT SLEEPING AND IN NO DISTRESS. WILL CONTINUE TO MONITOR. 1 TO 1 SITTER AT BEDSIDE.
--- NOTE | 2018-02-09 12:05 | NUR ---
PT SITTING UP EATING LUNCH IN NAD, RESP EVEN UNLABORED, PT REMAINS ON CREW MANAGER, PT ON 1:1 WATCH, NO IMMEDIATE NEEDS IDENTIFIED AT THIS TIME. WILL CONTINUE TO MONITOR.
--- NOTE | 2018-02-09 13:05 | NUR ---
NO UPDATE ON CONTACTED FACILITIES AT THIS TIME. [facility] WANDER ARTEAGA CALLED BACK SAYING THEY ARE REVIEWING HIS CHART WILL CALL [facility] FOR MORE INFORMATION AND HOPEFUL PLACEMENT PENDING REVIEW.
--- NOTE | 2018-02-09 16:00 | NUR ---
VITALS TAKEN, PT RESTING QUIETLY IN NAD, ASKING FOR SODA, CONTINUES WITH 1:1 SITTER, WILL CONTINUE TO MONITOR.
--- NOTE | 2018-02-09 16:44 | NUR ---
PT STARTED WITH GENERALIZED BODY SPASM, BILAT LEGS NOTED TO BE HYPEREXTENDED, STIFF UPPRER AND LOWER BODY, HYPERVENTILATION, DIAPHORESIS, EVENT LASTED APPROXIMATELY 8 MIN, PT REMAINED AWAKE DURING THIS ENTIRE TIME, PT WAS ABLE TO SAY "I'M OK", DR Syeda PRICE AT BEDSIDE, ATIVAN 2MG IVP GIVEN, WILL NOTIFY ATTENDING MD.
--- NOTE | 2018-02-09 17:30 | NUR ---
Pennie MARQUEZ. TO BEDSIDE, PT SLEEPING QUIETLY IN NAD, RESP EVEN UNLABORED, WILL CONTINUE TO MONITOR.
--- NOTE | 2018-02-09 18:45 | NUR ---
PT REMAINS ON 1 TO 1 WATCH. PT SLEEPING QUIETLY. RESPIRATIONS EVEN, UNLABORED. SKIN DRY, WARM, AND INTACT. COLOR WITHIN NORMAL LIMITS. PT APPEARS IN NO ACUTE DISTRESS. PT REMAINS ON SECURITY SUPPORT ANALYST. WILL CONTINUE TO MONITOR.
--- NOTE | 2018-02-09 19:11 | NUR ---
REPORT GIVEN TO LINA. OH IN STABLE CONDITION.
--- NOTE | 2018-02-09 19:12 | NUR ---
RECD. SLEEPING, WAKENS UP AFTER FEW MINUTES, A/OX4. RESPIRATION EVEN AND UNLABORED. SALINE LOCK AT THE LEFT FOREARM G 22, PATENT AND INTACT. PLAN OF CARE DISCUSSED. WHEN INQUIRED IF HE IS STILL HEARING VOICES, DID NOT REPLAY. NO APPEARANCE OF PAIN NOTED . Addendum: 02/10/18 at 0002 by Lizz Ramirez LVN CORRECTION: DID NOT REPLY, NOT REPLAY.
--- NOTE | 2018-02-09 19:40 | NUR ---
ATE HIS DINNER AT THE BEDSIDE TABLE.
--- NOTE | 2018-02-09 19:50 | NUR ---
WENT BACK TO SLEEP AFTER EATING. WILL CONTINUE TO MONITOR PATIENT BEHAVIOR BEING NURSE SITTER FOR THE SHIFT.
--- NOTE | 2018-02-09 21:00 | NUR ---
WOKE UP, WENT TO BR. BACK TO SLEEP AFTER VOIDING.
--- NOTE | 2018-02-09 22:49 | NUR ---
There are no vacancy at any of the facilities packet were faxed too , At this time , will continue calling and referring to other facilities thru the shift.
--- NOTE | 2018-02-09 23:30 | NUR ---
WOKE UP WENT TO BR TO VOID. BACK TO BED AFTER VOIDING. REQUESTED FOR APPLE JUICE.
[2018-02-10] VITALS: BP 169/108
--- NOTE | 2018-02-10 | NUR ---
Patient's Plan of Care was discussed and reviewed with ACCESS TECH: DARIAN BERNAL
--- NOTE | 2018-02-10 | NUR ---
BP HIGH - 169/108, RIGHT ARM, 145/108, LEFT ARM, HR -82. PAGE FOR DR. PRICE.
--- NOTE | 2018-02-10 00:30 | NUR ---
SLEEPING COMFORTABLY. PAGED FOR DR. PRICE.
[2018-02-10] MEDS ORDERED: cloNIDine 0.1 MG TAB PO PRN (01:00)
--- NOTE | 2018-02-10 01:00 | NUR ---
DR. PRICE ORDERED CLONIDINE, HYDROCHLOROTHIAZIDE AND ECHOCARDIOGRAM AND KIDNEY US.
--- NOTE | 2018-02-10 01:20 | NUR ---
MEDICATED WITH CLONIDINE 0.1 MG PO , COOPERATIVE.
--- NOTE | 2018-02-10 02:00 | NUR ---
SOUNDLY ASLEEP, SNORING.
[2018-02-10 02:45] VITALS: BP 144/109
--- NOTE | 2018-02-10 02:45 | NUR ---
WOKE UP AMBULATED TO BR TO VOID, BP CHECKED -144/109, HR - 96. NO COMPLAINT OF PAIN 0/10.
[2018-02-10 04:00] VITALS: BP 140/86
--- NOTE | 2018-02-10 04:00 | NUR ---
BP RECHECKED - 140/86, HR - 84. SLEEPING COMFORTABLY.
--- NOTE | 2018-02-10 06:15 | NUR ---
CONDITION REMAIN STABLE. NO SUICIDAL IDEATION NOTED DURING SHIFT. ENDORSED TO KARI LEWIS FOR MONITORING AND CONTINUITY OF CARE.
[2018-02-10 07:03] LABS: BASOPHILS % (AUTO) 0.5 % (0.0-2.0); EOSINOPHILS # (AUTO) 0.1 K/uL (0-0.4); EOSINOPHILS % (AUTO) 1.8 % (0.0-4.0); HEMATOCRIT 43.1 % (36-52); HEMOGLOBIN 14.1 g/dL (12.0-18.0); LYMPHOCYTES # (AUTO) 2.8 K/uL (2.0-11.5); LYMPHOCYTES % (AUTO) 35.3 % (20.5-51.1); MEAN CORPUSCULAR HEMOGLOBIN 27 pg (27-31); MEAN CORPUSCULAR HGB CONC 33 g/dL (33-37); MEAN CORPUSCULAR VOLUME 82.8 fL (80-94); MONOCYTES # (AUTO) 0.5 K/uL (0.8-1.0); MONOCYTES % (AUTO) 6.9 % (1.7-9.3); NEUTROPHILS # (AUTO) 4.4 K/uL (1.8-7.7); NEUTROPHILS % (AUTO) 55.5 % (42.2-75.2); PLATELET COUNT (AUTO) 409 K/uL (140-450); RED BLOOD CELL COUNT(AUTO) 5.21 MIL/uL (4.20-6.10); RED CELL DISTRIBUTION WIDTH 16.3 % (11.6-13.7)
[2018-02-10 07:51] LABS: ANION GAP 10.8 (8-16); CARBON DIOXIDE 29.4 mmol/L (21-32); CREATININE 0.9 mg/dL (0.7-1.3); POTASSIUM 4.2 mmol/L (3.5-5.1)
[2018-02-10 08:00] VITALS: BP 129/76
--- NOTE | 2018-02-10 08:00 | NUR ---
Patient's Plan of Care was discussed and reviewed with SNAKER TRACTOR DRIVER: DEBBIE
[2018-02-10] MEDS ORDERED: HYDROCHLOROTHIAZIDE 25 MG TAB PO SCH (09:00)
[2018-02-10] MEDS: OLANZapine 5 MG TAB PO SCH (09:03)
--- NOTE | 2018-02-10 09:06 | NUR ---
SIRISHA BOLANOS. WENT INSIDE PT. ROOM AND SPOKE TO PT. AT BEDSIDE. PT. CALM, AND COOPERATIVE.
--- NOTE | 2018-02-10 11:25 | NUR ---
US MARY DICKSON CAME FOR PT. US KIDNEY AT BEDSIDE.
--- NOTE | 2018-02-10 11:44 | NUR ---
US KIDNEY AT BEDSIDE DONE AT THIS TIME. NO C/O PAIN. CONTINUE TO MONITOR CLOSELY 1:1.
[2018-02-10 12:00] VITALS: BP 131/85
[2018-02-10 16:00] VITALS: BP 129/87
--- NOTE | 2018-02-10 17:45 | NUR ---
CALLED SIRISHA BOLANOS REGARDING PT. TRANSFER TO [facility]. LEFT MESSAGE AND CALL BACK NUMBER. INFORMED CHARGE NURSE NADINE MCKEON.
--- NOTE | 2018-02-10 18:01 | NUR ---
SIRISHA BOLANOS CALLED BACK, INFORMED THAT PT. HAVE A ROOM FOR TRANSFER AT [facility]. GOT T.O. TO D/C TO [facility], READ BACK, AND VERIFIED. INFORMED CHARGE NURSE NADINE MCKEON.
--- NOTE | 2018-02-10 18:18 | NUR ---
CALLED [facility] FOR REPORT AND SPOKE TO ANTHONY MCKEON REGARDING PT. TRANSFER. INFORMED CHARGE NURSE NADINE MCKEON.
--- NOTE | 2018-02-10 19:05 | NUR ---
MEDICAL TRANSPORTER CAME AND GAVE REPORT FOR PT. TRANSFER TO [facility].
--- NOTE | 2018-02-10 19:20 | NUR ---
D/C VIA GURNEY WITH MEDICAL TRANSPORTER. AWAKE, ALERT, AND ORIENTED X4. SPEECH CLEAR. NO C/O PAIN. NO SOB, NOTED. IN STABLE CONDITION. INFORMED CHARGE NURSE NADINE MCKEON.
== END 2018-02-10 19:20 | DRG 52 ==
LOC: MED 20:04 → MTU 02-07 04:01
PROVIDERS: ADMIT Preventive Medicine Preventive Medicine/Occupational Environmental Medicine; ATTEND Preventive Medicine Preventive Medicine/Occupational Environmental Medicine
DX: G92 Toxic encephalopathy (principal); R45.851 Suicidal ideations; R41.82 Altered mental status, unspecified; F25.0 Schizoaffective disorder, bipolar type; I10 Essential (primary) hypertension; F41.9 Anxiety disorder, unspecified; J45.909 Unspecified asthma, uncomplicated; F32.9 Major depressive disorder, single episode, unspecified; F29 Unspecified psychosis not due to a substance or known physiological condition; F12.90 Cannabis use, unspecified, uncomplicated; F15.10 Other stimulant abuse, uncomplicated; Z88.8 Allergy status to other drugs, medicaments and biological substances; Z91.19 Patient's noncompliance with other medical treatment and regimen; T43.625A Adverse effect of amphetamines, initial encounter
CPT/HCPCS: 36415; 76770; 80048; 80053; 80305; 81001; 82948; 85025; 87081; 87086; 93005; 99285; G0482; J1200; J2060; Q0092

== ENCOUNTER 2018-02-17 19:33 | Emergency (ER) | payer MEDICAID ==
[~2018-02-17] VITALS: Ht 170.2 cm; Wt 66.8 kg
[2018-02-17 19:35] VITALS: BP 139/90
--- NOTE | 2018-02-17 19:40 | NUR ---
PATIENT TO ER CHAIR Guzman
--- NOTE | 2018-02-17 20:05 | NUR ---
37Y/M PRESENTS TO ER REQUESTING MED REFILL, ZYPREXA AND HYDROCHLOROTHIAZIDE PT IS AA&OX4, TALKING TO HIMSELF, DENIES THOUGHTS OF SUICIDAL IDEATION AT THIS TIME. HX--HTN, SCHIZOPHRENIA
[2018-02-17 20:10] VITALS: BP 135/88
--- NOTE | 2018-02-17 20:11 | NUR ---
Patient discharged with v/s stable. Written and verbal after care instructions given and explained. Patient alert, oriented and verbalized understanding of instructions. Ambulatory with steady gait. All questions addressed prior to discharge. ID band removed. Patient advised to follow up with PMD. Rx of ZYPREXA, HYDROCHOLORTHIAZIDE given. Patient educated on indication of medication including possible reaction and side effects. Opportunity to ask questions provided and answered.
== END 2018-02-17 20:11 | disposition home or self-care (01) ==
LOC: MED 19:33
DX: F31.9 Bipolar disorder, unspecified (principal); I10 Essential (primary) hypertension; F20.9 Schizophrenia, unspecified; Z76.0 Encounter for issue of repeat prescription; Z88.8 Allergy status to other drugs, medicaments and biological substances; Z79.899 Other long term (current) drug therapy
CPT/HCPCS: 99283

== ENCOUNTER 2018-03-19 23:11 | Emergency (ER) | payer MEDICAID ==
[~2018-03-19] VITALS: Ht 170.2 cm; Wt 77.1 kg
[2018-03-19 23:13] VITALS: BP 160/98
--- NOTE | 2018-03-19 23:18 | NUR ---
TO LOBBY A/W BED, ARIA VITALE, DELFINO NOTED
--- NOTE | 2018-03-20 00:19 | NUR ---
PT TO ER BED 11
[2018-03-20] MEDS ORDERED: ALUMINUM HYD/MAG/SIMETHICONE 30 ML, DICYCLOMINE HCL LIQUID 20 MG, LIDOCAINE VISCOUS 2% ... PO ONE ×3 (01:40)
[2018-03-20] MEDS ORDERED: DICYCLOMINE HCL LIQUID 10 MG/5 ML UDC ONE (01:56)
[2018-03-20] MEDS ORDERED: LIDOCAINE VISCOUS 2% 20 ML UDC ONE (01:56)
--- NOTE | 2018-03-20 01:57 | NUR ---
GI COCKTAIL MEDS NOT AVAILABLE IN [facility] , HOUSE SUP. NOTIFIED.
--- NOTE | 2018-03-20 02:00 | NUR ---
PT C/O RT SIDE CHEST PAIN THAT STARTED 3 DAYS AGO AND WORSENING TONIGHT. PT STATES HE FELL 3 WEEKS AGO AND THEN HAD "SURGERY ON CHEST" STATES HE DOES NOT KNOW WHY. NO SURGICAL SCARS, BRUISING, OR REDNESS NOTED TO CHEST AREA. PT RATES PAIN 3/10. RR EVEN AND UNLABORED, BL BS CLEAR. PT IS NSR TO BEDSIDE MONITOR.
[2018-03-20 02:03] LABS: BARBITURATE, URINE NEG. ng/ml (NEG <=200); BENZODIAZEPINE, URINE NEG. ng/mL (NEG <=200); CANNABINOID, URINE POS. ng/mL (NEG <=50); COCAINE, URINE NEG. ng/mL (NEG <=300); OPIATE, URINE NEG. ng/mL (NEG <=2000); PHENCYCLIDINE SCREEN,URINE NEG. ng/mL (NEG <=25)
[2018-03-20 03:04] VITALS: BP 127/65
== END 2018-03-20 03:04 | disposition home or self-care (01) ==
LOC: MED 23:11
DX: F41.9 Anxiety disorder, unspecified (principal); F17.210 Nicotine dependence, cigarettes, uncomplicated; R94.31 Abnormal electrocardiogram [ECG] [EKG]; Z79.899 Other long term (current) drug therapy; Z88.8 Allergy status to other drugs, medicaments and biological substances
CPT/HCPCS: 71045; 80305; 93005; 99285

== ENCOUNTER 2018-03-21 03:05 | Emergency (ER) | payer MEDICAID ==
[~2018-03-21] VITALS: Ht 170.2 cm; Wt 77.1 kg
[~2018-03-21 03:05] MED LIST changes: +ALUMINUM HYD/MAG/SIMETHICONE 30 ML UDC ONE; +LIDOCAINE VISCOUS 2% 20 ML UDC ONE
[2018-03-21 03:12] VITALS: BP 158/101
--- NOTE | 2018-03-21 03:20 | NUR ---
pt ambulated to er bed 8
--- NOTE | 2018-03-21 03:25 | NUR ---
PATIENT IS A 38 Y/O MALE WHO PRESENTS TO THE ED FOR MED REFILL. PT STATES THAT HE WAS IN THE ED YESTERDAY AND PRESCRIBED ATIVAN AND LOST HIS PRESCRIPTION. PT DENIES PAIN AT THIS TIME. PT DENIES CP, SOB, N/V/D. PT AAOX4, RR EVEN/UNLABORED. PT REPOSITIONED FOR COMFORT, BED IN LOWEST POSITION. ER MD DR. WALL NOTIFIED. WILL CONTINUE TO MONITOR.
[2018-03-21 03:50] VITALS: BP 145/95
--- NOTE | 2018-03-21 03:50 | NUR ---
Patient discharged with v/s stable. Written and verbal after care instructions given and explained. Patient alert, oriented and verbalized understanding of instructions. Ambulatory with steady gait. All questions addressed prior to discharge. ID band removed. Patient advised to follow up with PMD. Rx of NORVASC 10MG AND ATIVAN 0.5MG given. Patient educated on indication of medication including possible reaction and side effects. Opportunity to ask questions provided and answered.
== END 2018-03-21 03:50 | disposition home or self-care (01) ==
LOC: MED 03:05
DX: I10 Essential (primary) hypertension (principal); Z76.0 Encounter for issue of repeat prescription; Z79.899 Other long term (current) drug therapy
CPT/HCPCS: 99283

== ENCOUNTER 2018-05-12 22:59 | Emergency (ER) | payer MEDICAID ==
[~2018-05-12] VITALS: Ht 170.2 cm; Wt 68.9 kg
[~2018-05-12 22:59] MED LIST changes: -ALUMINUM HYD/MAG/SIMETHICONE 30 ML UDC ONE; -LIDOCAINE VISCOUS 2% 20 ML UDC ONE
[2018-05-12 23:05] VITALS: BP 170/94
[2018-05-12] MEDS ORDERED: LORazepam 1 MG TAB PO ONE (23:20)
[2018-05-12 23:52] LABS: BARBITURATE, URINE NEG. ng/ml (NEG <=200); BENZODIAZEPINE, URINE NEG. ng/mL (NEG <=200); CANNABINOID, URINE POS. ng/mL (NEG <=50); COCAINE, URINE NEG. ng/mL (NEG <=300); OPIATE, URINE NEG. ng/mL (NEG <=2000); PHENCYCLIDINE SCREEN,URINE NEG. ng/mL (NEG <=25)
[2018-05-13 00:12] VITALS: BP 155/88
== END 2018-05-13 00:27 | disposition home or self-care (01) ==
LOC: MED 22:59
DX: F41.9 Anxiety disorder, unspecified (principal); F15.10 Other stimulant abuse, uncomplicated; I10 Essential (primary) hypertension; F32.9 Major depressive disorder, single episode, unspecified; F12.10 Cannabis abuse, uncomplicated
CPT/HCPCS: 80305; 99284

== ENCOUNTER 2018-05-21 22:37 | Inpatient (IN) | payer MEDICAID ==
[~2018-05-21] VITALS: Ht 167.6 cm; Wt 64.0 kg
[2018-05-21 22:55] LABS: APPEARANCE,URINE CLEAR (CLEAR); BILIRUBIN,URINE NEGATIVE (NEGATIVE); BLOOD, URINE NEGATIVE (NEGATIVE); COLOR,URINE YELLOW (YELLOW); LEUKOCYTE ESTERASE ,URINE NEGATIVE (NEGATIVE); NITRITE, URINE NEGATIVE (NEGATIVE); UGLUCOSE NEGATIVE (NEGATIVE)
[2018-05-21 22:56] VITALS: BP 161/104
[2018-05-21 23:00] LABS: BARBITURATE, URINE NEG. ng/ml (NEG <=200); BENZODIAZEPINE, URINE NEG. ng/mL (NEG <=200); CANNABINOID, URINE NEG. ng/mL (NEG <=50); COCAINE, URINE NEG. ng/mL (NEG <=300); OPIATE, URINE NEG. ng/mL (NEG <=2000); PHENCYCLIDINE SCREEN,URINE NEG. ng/mL (NEG <=25)
[2018-05-21 23:11] LABS: BASOPHILS # (AUTO) 0.1 K/uL (0.00-0.22); BASOPHILS % (AUTO) 0.7 % (0.0-2.0); EOSINOPHILS % (AUTO) 0.4 % (0.0-4.0); HEMATOCRIT 39.8 % (36-52); LYMPHOCYTES % (AUTO) 22.7 % (20.5-51.1); MEAN CORPUSCULAR HEMOGLOBIN 27 pg (27-31); MEAN CORPUSCULAR HGB CONC 33 g/dL (33-37); MEAN CORPUSCULAR VOLUME 82.9 fL (80-94); MONOCYTES # (AUTO) 0.8 K/uL (0.8-1.0); MONOCYTES % (AUTO) 8.5 % (1.7-9.3); NEUTROPHILS # (AUTO) 6.1 K/uL (1.8-7.7); NEUTROPHILS % (AUTO) 67.7 % (42.2-75.2); PLATELET COUNT (AUTO) 451 K/uL (140-450); RED CELL DISTRIBUTION WIDTH 16.1 % (11.6-13.7)
[2018-05-21 23:30] LABS: ALBUMIN 4.7 g/dL (3.4-5.0); ANION GAP 14.4 (8-16); ASPARTATE AMINOTRANSFERASE 25 U/L (15-37); CARBON DIOXIDE 27.4 mmol/L (21-32); CHLORIDE 100 mmol/L (98-107); CREATININE 1.1 mg/dL (0.7-1.3); GFR ARICAN-AMERICAN 95 mL/min (>90); GLUCOSE 108 mg/dL (74-106); POTASSIUM 3.8 mmol/L (3.5-5.1); SODIUM SERUM 138 mmol/L (136-145); TOTAL BILIRUBIN 0.8 mg/dL (0.0-1.0); UREA NITROGEN, BLOOD 21 mg/dL (7-18)
[2018-05-21 23:31] LABS: ACETAMINOPHEN < 0.5 ug/ml (10-30); SALICYLATE < 2.8 mg/dL (2.8-20.0)
[2018-05-22] MEDS ORDERED: ACETAMINOPHEN 325 MG TAB PO PRN (01:10)
[2018-05-22] MEDS ORDERED: ONDANSETRON 4 MG/2 ML VIAL IVP PRN (01:10)
[2018-05-22 01:31] LABS: PROTHROMBIN TIME 10.3 secs (10.8-13.4)
[2018-05-22 01:39] LABS: CHOL/HDL RATIO 2.3 (1-4.5); FREE T4 (FREE THYROXINE) 1.02 ng/dL (0.76-1.46); MAGNESIUM 1.9 mg/dL (1.8-2.4); PHOSPHORUS 4.3 mg/dL (2.5-4.9); THYROID STIMULATING HORMONE 0.84 uIU/mL (0.34-3.74)
[2018-05-22 04:06] VITALS: BP 160/102
[2018-05-22] MEDS: amLODIPine 5 MG TAB PO SCH ×2 (09:00→10:59)
[2018-05-22] MEDS ORDERED: OLANZapine 5 MG TAB PO SCH (09:00)
[2018-05-22] MEDS: LISINOPRIL 5 MG TAB PO SCH ×2 (09:00→10:59)
[2018-05-22] MEDS ORDERED: DOCUSATE SODIUM 100 MG GELCAP PO SCH (09:00)
[2018-05-22] MEDS ORDERED: LORazepam 2 MG/ML VIAL IVP PRN ×2 (14:10→14:25)
[2018-05-22] MEDS ORDERED: HALOPERIDOL IM 5 MG/ML VIAL IM PRN (14:30)
[2018-05-22] MEDS ORDERED: AMLO5TAB4 PO (18:36)
[2018-05-22] MEDS ORDERED: LISI-424 PO (18:36)
[2018-05-22] MEDS ORDERED: OLAN5TAB30 PO (18:36)
[2018-05-23] MEDS ORDERED: ASPIRIN 81 MG TAB.CHEW PO SCH (09:00)
[2018-05-23] MEDS ORDERED: ATENOLOL 25 MG TAB PO SCH (09:00)
== END 2018-05-22 19:30 | disposition home or self-care (01) | DRG 812 ==
LOC: MED 22:37 → MTU 05-22 01:11
PROVIDERS: ADMIT General Practice; ATTEND General Practice
DX: T43.621A Poisoning by amphetamines, accidental (unintentional), initial encounter (principal); G92 Toxic encephalopathy; F25.0 Schizoaffective disorder, bipolar type; R45.851 Suicidal ideations; I16.0 Hypertensive urgency; I10 Essential (primary) hypertension; F43.10 Post-traumatic stress disorder, unspecified; F41.9 Anxiety disorder, unspecified; F12.229 Cannabis dependence with intoxication, unspecified; Z79.899 Other long term (current) drug therapy; Y92.89 Other specified places as the place of occurrence of the external cause; Z91.19 Patient's noncompliance with other medical treatment and regimen
CPT/HCPCS: 36415; 71045; 80053; 80305; 81003; 82140; 82150; 83036; 83690; 83735; 83880; 84100; 84439; 84443; 84484; 85025; 85610; 85730; 87081; 99285; G0480; G0482; J2060; Q0092

== ENCOUNTER 2018-06-19 21:00 | Inpatient (IN) | payer MEDICAID ==
[~2018-06-19] VITALS: Ht 170.2 cm; Wt 72.6 kg
[~2018-06-19 21:00] MED LIST changes: +AMLO5TAB4 PO; +LISI-424 PO
[2018-06-19 21:07] VITALS: BP 164/100
--- NOTE | 2018-06-19 21:07 | NUR ---
TO BED # 9 AMBULATORY, REPORT GIVEN TO ALCIDES RN
--- NOTE | 2018-06-19 21:10 | NUR ---
PATIENT IS A 38 Y/O MALE WHO PRESENTS TO THE ED C/O HALLUCINATIONS. PT STATES THAT HE WANTS TO HURT HIMSELF AND REPORTS NOT TAKING HIS PRESCRIPTIONS, WANTS TO ALSO HURT HIMSELF BY DRINKING ALCOHOL. PT DENIES PAIN AT THIS TIME. PT DENIES CP, SOB, N/V/D. PT AWAKE AND ALERT, RR EVEN/UNLABORED. PT REPOSITIONED FOR COMFORT, BED IN LOWEST POSITION. ER MD DR. MEJÍA NOTIFIED. WILL CONTINUE TO MONITOR.
--- NOTE | 2018-06-19 21:15 | NUR ---
Pt report given to EDGAR THORNTON. Transfer of care at this time.
--- NOTE | 2018-06-19 21:19 | NUR ---
[facility] AT BEDSIDE EVALUATING PT. PT PLACED ON A 5150 HOLD. 5150 PRECAUTIONS INITIATED. SITTER AT BEDSIDE.
--- NOTE | 2018-06-19 21:28 | NUR ---
Ness sandoval in [facility] - 06/19/18 at 2239 [address] [employer] [place] [employer] AT BEDSIDE
--- NOTE | 2018-06-19 21:50 | NUR ---
PT TAKEN TO BED 5
--- NOTE | 2018-06-19 22:00 | NUR ---
SITTER AT BEDSIDE. PT ASLEEP COMFORTABLY
--- NOTE | 2018-06-19 22:01 | NUR ---
Ness sandoval in [facility] - 06/19/18 at 2239 by PEMA PATIENT PLACED ON A 5150 HOLD BY [place] [employer] OFFICER
[2018-06-19 22:55] LABS: BASOPHILS % (AUTO) 0.5 % (0.0-2.0); EOSINOPHILS % (AUTO) 0.5 % (0.0-4.0); HEMATOCRIT 38.2 % (36-52); HEMOGLOBIN 12.4 g/dL (12.0-18.0); LYMPHOCYTES # (AUTO) 2.3 K/uL (2.0-11.5); LYMPHOCYTES % (AUTO) 37.9 % (20.5-51.1); MEAN CORPUSCULAR HEMOGLOBIN 27 pg (27-31); MEAN CORPUSCULAR HGB CONC 33 g/dL (33-37); MEAN CORPUSCULAR VOLUME 84.2 fL (80-94); MONOCYTES # (AUTO) 0.4 K/uL (0.8-1.0); MONOCYTES % (AUTO) 6.4 % (1.7-9.3); NEUTROPHILS # (AUTO) 3.3 K/uL (1.8-7.7); NEUTROPHILS % (AUTO) 54.7 % (42.2-75.2); PLATELET COUNT (AUTO) 338 K/uL (140-450); RED BLOOD CELL COUNT(AUTO) 4.54 MIL/uL (4.20-6.10); RED CELL DISTRIBUTION WIDTH 16.5 % (11.6-13.7); WHITE BLOOD COUNT (AUTO) 6.1 K/uL (4.8-10.8)
[2018-06-19 23:00] LABS: APPEARANCE,URINE CLEAR (CLEAR); BILIRUBIN,URINE NEGATIVE (NEGATIVE); BLOOD, URINE NEGATIVE (NEGATIVE); COLOR,URINE YELLOW (YELLOW); LEUKOCYTE ESTERASE ,URINE NEGATIVE (NEGATIVE); NITRITE, URINE NEGATIVE (NEGATIVE); PH,URINE 6.5 (5.0-9.0); UGLUCOSE NEGATIVE (NEGATIVE)
--- NOTE | 2018-06-19 23:00 | NUR ---
SITTER AT BEDSIDE. PT ASLEEP COMFORTABLY
[2018-06-19 23:08] LABS: ALBUMIN 3.5 g/dL (3.4-5.0); ANION GAP 9.2 (8-16); ASPARTATE AMINOTRANSFERASE 17 U/L (15-37); CARBON DIOXIDE 28.4 mmol/L (21-32); CHLORIDE 105 mmol/L (98-107); CREATININE 0.7 mg/dL (0.7-1.3); GFR ARICAN-AMERICAN 161 mL/min (>90); GLUCOSE 102 mg/dL (74-106); POTASSIUM 3.6 mmol/L (3.5-5.1); SODIUM SERUM 139 mmol/L (136-145); TOTAL BILIRUBIN 0.3 mg/dL (0.0-1.0); UREA NITROGEN, BLOOD 5 mg/dL (7-18)
[2018-06-19 23:08] LABS: BARBITURATE, URINE NEG. ng/ml (NEG <=200); BENZODIAZEPINE, URINE NEG. ng/mL (NEG <=200); CANNABINOID, URINE POS. ng/mL (NEG <=50); COCAINE, URINE NEG. ng/mL (NEG <=300); OPIATE, URINE NEG. ng/mL (NEG <=2000); PHENCYCLIDINE SCREEN,URINE NEG. ng/mL (NEG <=25)
[2018-06-19 23:10] LABS: ACETAMINOPHEN < 0.5 ug/ml (10-30); SALICYLATE < 2.8 mg/dL (2.8-20.0)
--- NOTE | 2018-06-20 00:06 | NUR ---
Dr. Arita evaluating patient at bedside.
--- NOTE | 2018-06-20 00:12 | NUR ---
SITTER AT BEDSIDE. PT ASLEEP COMFORTABLY
--- NOTE | 2018-06-20 01:30 | NUR ---
SITTER AT BEDSIDE. PT ASLEEP COMFORTABLY
[2018-06-20] MEDS ORDERED: ZOLPIDEM 5 MG TAB PO PRN (02:05)
[2018-06-20] MEDS ORDERED: ONDANSETRON 4 MG/2 ML VIAL IVP PRN (02:05)
[2018-06-20] MEDS ORDERED: ACETAMINOPHEN 325 MG TAB PO PRN (02:05)
--- NOTE | 2018-06-20 02:17 | NUR ---
Called the following facilities: [facility], spoke with Suzi, no beds available. Packets were faxed to both facilities. [facility], spoke with Cara, no beds available, packet was faxed. [facility], spoke with Marianna, no beds available. [facility], spoke with German, no beds available. [facility], no beds available, spoke with Kinza. [facility], spoke with Sandy, no beds available, packet was faxed. [facility], spoke with Anamaria, no beds available, packet was faxed. [facility], spoke with Cole, no beds available. Will endorse next shift to follow-up with bed request.
[2018-06-20 02:32] LABS: PROTHROMBIN TIME 9.8 secs (10.8-13.4)
--- NOTE | 2018-06-20 02:33 | NUR ---
Dr. Lee evaluating patient
--- NOTE | 2018-06-20 02:45 | NUR ---
Patient will be admitted to care of GOVIL. Admited to MS. Will go to room 110B. Belongings list completed. Report to KENY THORNTON.
--- NOTE | 2018-06-20 02:50 | NUR ---
ADMITTED A 38 Y/O MALE FROM WITH CHIEF COMPLAINED OF SUICIDAL IDEATION AND HALLUCINATION. PATIENT WAS AMBULATORY,AAOX3. ADMISSION CARE DONE AND CARRY OUT ORDERS. MRSA NASAL DONE. PERSONAL BELONGINGS KEEP IN SECURITY LOCK. DISCUSS PLAN OF CARE AND VERBALIZED UNDERSTANDING. SUICIDAL PRECAUTION APPLIED. 1:1 SITTER IN CONSTANT CLOSE OBSERVATION FOR SAFETY. PATIENT REFUSE TO START IV FLUID. DR. DAMICO MADE AWARE. BED IN LOW LOCKED POSITION. ALL NEEDS ATTENDED. WILL CONTINUE TO MONITOR.
[2018-06-20 02:51] LABS: FREE T4 (FREE THYROXINE) 0.86 ng/dL (0.76-1.46); MAGNESIUM 1.6 mg/dL (1.8-2.4); PHOSPHORUS 3.3 mg/dL (2.5-4.9); THYROID STIMULATING HORMONE 0.31 uIU/mL (0.34-3.74)
[2018-06-20] MEDS ORDERED: CITA20TA15 PO (03:13)
[2018-06-20] MEDS: NACL 0.9% 1,000 ML IV SCH (03:19)
--- NOTE | 2018-06-20 04:30 | NUR ---
CHECKED PATIENT RESTING COMFORTABLE ON BED. 1:1 SITTER FOR CLOSE CONSTANT OBSERVATION. SUICIDAL PRECAUTION APPLIED. BED IN LOW LOCK POSITION. WILL CONTINUE TO MONITOR.
[2018-06-20 05:19] LABS: CHOL/HDL RATIO 1.8 (1-4.5)
--- NOTE | 2018-06-20 06:19 | NUR ---
PATIENT HAS BEEN SCREENED AND CATEGORIZED MODERATE NUTRITION RISK. PATIENT WILL BE SEEN WITHIN 3-5 DAYS OF ADMISSION. 06/22/18-06/24/18 CARLOS SCHMID MS, RDN
--- NOTE | 2018-06-20 07:05 | NUR ---
ENDORSEMENT GIVEN TO [facility] SHIFT NURSE AT BEDSIDE FOR CONTINUITY OF CARE. PATIENT IN STABLE CONDITION.
--- NOTE | 2018-06-20 07:30 | NUR ---
RECEIVED PT FROM PM NURSE, PT AWAKE, ALERT. RA, NO S/S OF RESPIRATORY DISTRESS NOTED. LUNG SOUND CLEAR, PT HAS IV TO LEFT AC. PT ABLE TO AMBULATE. POC EXPLAINED TO PT , PT VERBALIZED UNDERSTANDING. PT STATED NO SUICIDAL IDEATION AT THIS MOMENT. WILL CONTINUE TO MONITOR.
[2018-06-20 08:00] VITALS: BP 152/99
[2018-06-20] MEDS: amLODIPine 5 MG TAB PO SCH (08:59)
[2018-06-20] MEDS: DOCUSATE SODIUM 100 MG GELCAP PO SCH ×2 (08:59→21:19)
[2018-06-20] MEDS: MAGNESIUM OXIDE 400 MG TAB PO SCH (08:59)
[2018-06-20] MEDS: QUEtiapine FUMARATE 25 MG TAB PO SCH ×2 (09:00→21:00)
[2018-06-20] MEDS: CITALOPRAM 20 MG TAB PO SCH (09:00)
[2018-06-20] MEDS: NICOTINE TRANSD SYS 14 MG/24 HR PATCH TD SCH (09:00)
--- NOTE | 2018-06-20 09:00 | NUR ---
pt refused seroquel, he stated this medication made him nightmare. charge nurse mireya made aware.
--- NOTE | 2018-06-20 09:25 | NUR ---
PT C/O IV SITE HURTS, NOTIFIED , REMOVED PER ORDER.
--- NOTE | 2018-06-20 11:38 | NUR ---
PT AMBULATED TO BATHROOM, ASKED PT IS EVERYTHING OK. PT STATED HE IS FINE.
--- NOTE | 2018-06-20 13:00 | NUR ---
PT ATE 100% OF HIS LUNCH
--- NOTE | 2018-06-20 15:00 | NUR ---
PT STAYING IN BED. NO S/S OF RESPIRATORY DISTRESS NOTED.
[2018-06-20 15:46] VITALS: BP 148/98
--- NOTE | 2018-06-20 17:05 | NUR ---
PT SLEEPING, ABLE TO WAKE UP WHEN ASSESS PATIENT, NO S/S OF RESPIRATORY DISTRESS NOTED.
--- NOTE | 2018-06-20 18:10 | NUR ---
PT AMBULATE TO BATHROOM. NO DISCOMFORT NOTED.
--- NOTE | 2018-06-20 19:19 | NUR ---
RECEIVED REPORT FROM DAY SHIFT NURSE BRIAN GAMEZ AT BEDSIDE. PT RESTING IN BED- AOX4, ON ROOM AIR, NO IV SITE, AMBULATORY WITH BATHROOM PRIVILEGES. DISCUSSED PLAN OF CARE AND PT VERBALIZED UNDERSTANDING. NO S/S OF RESPIRATORY DISTRESS OR DISCOMFORT NOTED AT THIS TIME. BED IN LOWEST POSITION, BED BREAKS ON, AND BOTH SIDE RAILS UP. BED SIDE TABLE AND SITTER WITHIN REACH. WILL CONTINUE TO MONITOR.
--- NOTE | 2018-06-20 19:45 | NUR ---
PER PROGRESS NOTES H&P TAB IN CHART, "PT DOES NOT CURRENTLY MEET 5150 CRITERIA" SINCE 06/20/2018 @[address] SANDERS.
[2018-06-20 20:00] VITALS: BP 150/78
--- NOTE | 2018-06-20 20:00 | NUR ---
VITAL SIGNS TAKEN AND TOLERATED WELL. NO S/S OF RESPIRATORY DISTRESS OR DISCOMFORT NOTED AT THIS TIME. WILL CONTINUE TO MONITOR.
--- NOTE | 2018-06-20 21:20 | NUR ---
SCHEDULED MEDICATION COLACE GIVEN AND TOLERATED WELL. PT CONTINUES TO REFUSE SEROQUEL. NO S/S OF RESPIRATORY DISTRESS OR DISCOMFORT NOTED AT THIS TIME. WILL CONTINUE TO MONITOR.
--- NOTE | 2018-06-20 21:35 | NUR ---
PT REQUESTED [employer] SANDWICH AND WAS PROVIDED ALONG WITH SNACKS. PT RESTING IN BED, CALM, POLITE AND COOPERATIVE. NO S/S OF RESPIRATORY DISTRESS OR DISCOMFORT NOTED AT THIS TIME. WILL CONTINUE TO MONITOR.
--- NOTE | 2018-06-20 22:00 | NUR ---
PT USED TO RESTROOM AND NOW RESTING IN BED. NO S/S OF RESPIRATORY DISTRESS OR DISCOMFORT NOTED AT THIS TIME. WILL CONTINUE TO MONITOR.
[2018-06-21] VITALS: BP 146/93
--- NOTE | 2018-06-21 | NUR ---
VITAL SIGNS TAKEN AND TOLERATED WELL. NO S/S OF RESPIRATORY DISTRESS OR DISCOMFORT NOTED AT THIS TIME. WILL CONTINUE TO MONITOR.
--- NOTE | 2018-06-21 02:00 | NUR ---
PT CONTINUES TO SLEEP. NO S/S OF RESPIRATORY DISTRESS OR DISCOMFORT NOTED AT THIS TIME. WILL CONTINUE TO MONITOR.
[2018-06-21] MEDS: NACL 0.9% 1,000 ML IV SCH (02:01)
--- NOTE | 2018-06-21 04:00 | NUR ---
PT CONTINUES TO SLEEP. NO S/S OF RESPIRATORY DISTRESS OR DISCOMFORT NOTED AT THIS TIME. WILL CONTINUE TO MONITOR.
--- NOTE | 2018-06-21 06:00 | NUR ---
PT CONTINUES SLEEPING. NO S/S OF RESPIRATORY DISTRESS OR DISCOMFORT NOTED AT THIS TIME. WILL CONTINUE TO MONITOR.
--- NOTE | 2018-06-21 07:05 | NUR ---
ENDORSED PT CARE TO DAY SHIFT NURSE PRERNA FOR CONTINUITY OF CARE.
--- NOTE | 2018-06-21 07:06 | NUR ---
RECEIVED REPORT FROM NON LINEAR EDITOR NURSE. PATIENT LYING DOWN IN BED COMFORTABLY. NO DISTRESS NOTED. DENIES ANY PAIN. RESPIRATIONS EVEN, UNLABORED, ON ROOM AIR. AAOX4, CALM, COOPERATIVE, SKIN COLOR APPROPRIATE TO ETHNICITY, WARM TO TOUCH. SKIN INTACT. LUNGS CTA ON ALL LOBES. ABDOMEN SOFT, NON-DISTENDED. NO IV SITE IN PLACE PATIENT REFUSES, MD ALREADY AWARE. REVIEWED PLAN OF CARE WITH PATIENT. PATIENT VERBALIZED UNDERSTANDING. SAFETY MEASURES IN PLACE, CALL LIGHT WITHIN REACH. WILL CONTINUE TO MONITOR.
[2018-06-21 08:00] VITALS: BP 137/94
[2018-06-21] MEDS: amLODIPine 5 MG TAB PO SCH (08:54)
[2018-06-21] MEDS: CITALOPRAM 20 MG TAB PO SCH (08:54)
[2018-06-21] MEDS: DOCUSATE SODIUM 100 MG GELCAP PO SCH (08:55)
[2018-06-21] MEDS: MAGNESIUM OXIDE 400 MG TAB PO SCH (08:55)
[2018-06-21] MEDS: NICOTINE TRANSD SYS 14 MG/24 HR PATCH TD SCH (08:56)
--- NOTE | 2018-06-21 08:57 | NUR ---
PATIENT LYING DOWN IN BED COMFORTABLY. NO DISTRESS NOTED. DENIES ANY PAIN. SCHEDULED MEDICATIONS GIVEN. WILL CONTINUE TO MONITOR.
[2018-06-21] MEDS ORDERED: QUEtiapine FUMARATE 25 MG TAB PO SCH (09:00)
[2018-06-21] MEDS ORDERED: QUET50TA PO (09:54)
--- NOTE | 2018-06-21 11:15 | NUR ---
DISCHARGE INSTRUCTIONS PROVIDED TO PATIENT IN PREFERRED LANGUAGE OF CUBAN, FOLLOW-UP VISITS WITH PCP, NEW/CHANGED MEDICATION REGIMEN, DIET REGIMEN AND DISEASE MANAGEMENT OF SCHIZOPHRENIA. ANSWERED ALL OF PATIENT'S QUESTIONS REGARDING DISCHARGE. PATIENT VERBALIZED COMPLETE UNDERSTANDING. BUS PASS GIVEN TO PATIENT PER PATIENT REQUEST. ID BANDS REMOVED. NO IV SITE PRESENT. ESCORTED PATIENT DOWN TO LOBBY VIA STEADY AMBULATION. PATIENT DISCHARGED AT THIS TIME VIA PUBLIC TRANSPORT IN STABLE CONDITION.
[2018-06-22] MEDS ORDERED: QUEtiapine FUMARATE 100 MG TAB PO SCH (09:00)
== END 2018-06-21 11:15 | disposition home or self-care (01) | DRG 776 ==
LOC: MED 21:00 → MTU 06-20 02:01
PROVIDERS: ADMIT Family Medicine; ATTEND Family Medicine
DX: F15.10 Other stimulant abuse, uncomplicated (principal); G92 Toxic encephalopathy; E83.42 Hypomagnesemia; K86.1 Other chronic pancreatitis; F25.9 Schizoaffective disorder, unspecified; R45.851 Suicidal ideations; F12.229 Cannabis dependence with intoxication, unspecified; F32.9 Major depressive disorder, single episode, unspecified; E05.90 Thyrotoxicosis, unspecified without thyrotoxic crisis or storm; I10 Essential (primary) hypertension; F17.210 Nicotine dependence, cigarettes, uncomplicated; F43.10 Post-traumatic stress disorder, unspecified; F41.9 Anxiety disorder, unspecified; Z82.49 Family history of ischemic heart disease and other diseases of the circulatory system; Z79.899 Other long term (current) drug therapy; Z81.8 Family history of other mental and behavioral disorders; Z59.0 Homelessness
CPT/HCPCS: 36415; 80053; 80305; 81003; 82150; 83690; 83735; 83880; 84100; 84439; 84443; 84484; 85025; 85610; 85730; 87081; 93005; 99285; G0480; G0482; J7030

== ENCOUNTER 2018-06-30 21:42 | Emergency (ER) | payer MEDICAID ==
[~2018-06-30] VITALS: Ht 170.2 cm; Wt 77.1 kg
[~2018-06-30 21:42] MED LIST changes: +CITA20TA15 PO; -LISI-424 PO; -OLAN5TAB30 PO; +QUET50TA PO
[2018-06-30 21:57] VITALS: BP 126/72
--- NOTE | 2018-06-30 21:57 | NUR ---
TO BED # 6 AMBULATORY, REPORT GIVEN TO KAYLA THORNTON
--- NOTE | 2018-06-30 21:57 | NUR ---
PT PRESENTS TO ED FOR MEDCATION REFILLS. PT HAS HX OF SCHIZORPHRENIA AND BIPOLAR DEPRESSION. VSS AT THIS TIME. PT A&OX4. HE IS CALM AND COOPERATIVE. ER AWARE. CONTINUE TO MONITOR.
[2018-06-30 22:25] VITALS: BP 126/72
--- NOTE | 2018-06-30 22:25 | NUR ---
Patient discharged with v/s stable. Written and verbal after care instructions given and explained. Patient alert, oriented and verbalized understanding of instructions. Ambulatory with steady gait. All questions addressed prior to discharge. ID band removed. Patient advised to follow up with PMD. Rx of Zyprexa, Seroquel, Citalopram, Hydrochlorthiazide, Amlodapine given. Patient educated on indication of medication including possible reaction and side effects. Opportunity to ask questions provided and answered.
== END 2018-06-30 22:25 | disposition home or self-care (01) ==
LOC: MED 21:42
DX: Z76.0 Encounter for issue of repeat prescription (principal); I10 Essential (primary) hypertension; Z79.899 Other long term (current) drug therapy
CPT/HCPCS: 99283

== ENCOUNTER 2018-07-01 07:38 | Emergency (ER) | payer MEDICAID ==
[~2018-07-01] VITALS: Ht 177.8 cm; Wt 72.6 kg
[2018-07-01 07:42] VITALS: BP 185/121
--- NOTE | 2018-07-01 08:00 | NUR ---
Patient ambulated to bed 4. RN evaluating patient at bedside.
--- NOTE | 2018-07-01 08:10 | NUR ---
PT. CAME INTO THE ED DUE TO ANXIETY ON AND OFF X 2 WEEKS. PT STATES " I JUST NEED HELP I FEEL REALLY ANXIOUS AND I HAVE BEEN SEEING THINGS". PT DENIES ANY THOUGHTS OF HURTING SELF OR OTHERS. PT. STATES " I AM JUST SEEING THINGS, I LIVE IN [place]". PT. CAME INTO THE ED YESTERDAY FOR MEDICATION REFILL BUT STATES " I CAN NOT AFFORD IT". RR EVEN AND UNLABORED. PT. IS CALM AND COOPERATIVE AT THIS TIME. DENIES ANY N/V/D. DENIES CP, DENIES ANY PAIN AT THIS TIME.PT STATES " I WOULD LIKE TO SPEAK TO A WIRE TAPER REGARDING SOME HELP BEING PLACED SOMEWHERE". WILL CONTINUE TO MONITOR. ER NOTIFIED. SAFETY PRECAUTIONS INITITIATED.
[2018-07-01] MEDS ORDERED: OLANZapine 5 MG TAB PO SCH (08:20)
--- NOTE | 2018-07-01 08:41 | NUR ---
Dr. Bolden evaluating patient at bedside.
--- NOTE | 2018-07-01 09:34 | NUR ---
CALLED [facility], NO RESPONSE. LEFT MESSAGE TO COME SPEAK WITH PT . WILL CALL BACK.
--- NOTE | 2018-07-01 10:27 | NUR ---
pt. sitting in bed, rr even and unlabored. provided with a phone to make call. will continue to monitor.
--- NOTE | 2018-07-01 10:33 | NUR ---
bp 174/ 102 ER MD DENNIS MADE AWARE.
--- NOTE | 2018-07-01 11:35 | NUR ---
SHINGLE INSPECTOR CALLED, SHINGLE INSPECTOR TO COME TO BEDSIDE AT THIS TIME.
--- NOTE | 2018-07-01 12:02 | NUR ---
Lottery Sales Clerk Note: I met with patient at bedside. Per patient, he wanted to speak with a social science research assistant because he is not able to fill his prescriptions and would like community resources for alcohol/substance abuse treatment and counseling/mental health services. I inquired the reason why he can't fill his prescriptions. He stated when he goes to the pharmacy located in [facility], the pharmacist tell him his Medi-Narayan is from [facility] and they can't accept his [place] since it [place]. I asked him if he has tried going to a pharmacy located in [facility], he responded "No" and stated he will go to a pharmacy in [facility]. Patient reported he lives in [place], [place]. I advised him to follow up with [facility] Lara Russo [facility], [place] [address] and ask for assistance with switching his Medi-Narayan insurance to [facility], he verbalized understanding. I provided him with a list of counseling/mental health services and a list of alcohol/substance abuse treatment programs, patient's nurse Anila made aware of above information. Addendum: 07/01/18 at 1225 by Fariha Ambrose Per patient, he would like a suraj pass, [facility] made aware.
[2018-07-01 12:55] VITALS: BP 170/100
--- NOTE | 2018-07-01 12:55 | NUR ---
Patient discharged with v/s stable. Written and verbal after care instructions given and explained. Patient verbalized understanding. Ambulatory with steady gait. All questions addressed prior to discharge. Advised to follow up with PMD.PROVIDED WITH BUS PASS , VITAL SIGNS OKAY PER MD TO DISCHARGE, NO DIZZYNESS, STEADY GAIT.
== END 2018-07-01 12:55 | disposition home or self-care (01) ==
LOC: MED 07:38
DX: F25.9 Schizoaffective disorder, unspecified (principal); I10 Essential (primary) hypertension; Z88.8 Allergy status to other drugs, medicaments and biological substances; Z79.899 Other long term (current) drug therapy
CPT/HCPCS: 99282; 99283; 99284

== ENCOUNTER 2019-02-26 21:14 | Emergency (ER) | payer MEDICAID ==
[~2019-02-26] VITALS: Ht 170.2 cm; Wt 68.0 kg
[~2019-02-26 21:14] MED LIST changes: -AMLO5TAB4 PO; +AMLO5TAB6 PO
[2019-02-26 21:15] VITALS: BP 171/117
--- NOTE | 2019-02-26 21:24 | NUR ---
PT AMBULATED TO BED 8
--- NOTE | 2019-02-26 21:41 | NUR ---
38 Y/O M PRESENTED TO ED WITH C/O HIGH BLOOD PRESSURE X 2 WEEKS. BP TAKEN AND 150/92, HR 113. HYPERTENSION ACCOMPANIED BY DIZZINES, LIGHTHEADEDNESS, AND INTERMINTENT BLURRED VISON. AAOX4. PER PT, "HAVING SOME ISSUES WITH MY GIRLFRIEND AND I HAVENT BEEN HOME IN 3 DAYS.' PT ADMITTED TO [facility] AND [employer]AGE. BEDRAILS X2 UP. BED IN LOWEST POSTION. ERMD NOTIFIED. WILL CONTINUE TO MONITOR.
--- NOTE | 2019-02-26 21:49 | NUR ---
DR. MEJÍA EVALUATING PT BEDSIDE
[2019-02-26] MEDS ORDERED: LISINOPRIL 20 MG TAB PO ONE (21:55)
[2019-02-26] MEDS ORDERED: LISINOPRIL 10 MG TAB ONE (22:05)
[2019-02-26 22:09] LABS: BASOPHILS % (AUTO) 0.4 % (0.0-2.0); EOSINOPHILS # (AUTO) 0.1 K/uL (0-0.4); EOSINOPHILS % (AUTO) 1.6 % (0.0-4.0); HEMATOCRIT 41.1 % (36-52); HEMOGLOBIN 13.5 g/dL (12.0-18.0); LYMPHOCYTES # (AUTO) 2.6 K/uL (2.0-11.5); LYMPHOCYTES % (AUTO) 33.8 % (20.5-51.1); MEAN CORPUSCULAR HEMOGLOBIN 28 pg (27-31); MEAN CORPUSCULAR HGB CONC 33 g/dL (33-37); MEAN CORPUSCULAR VOLUME 83.8 fL (80-94); MONOCYTES # (AUTO) 0.7 K/uL (0.8-1.0); MONOCYTES % (AUTO) 8.8 % (1.7-9.3); NEUTROPHILS # (AUTO) 4.2 K/uL (1.8-7.7); NEUTROPHILS % (AUTO) 55.4 % (42.2-75.2); PLATELET COUNT (AUTO) 334 K/uL (140-450); WHITE BLOOD COUNT (AUTO) 7.6 K/uL (4.8-10.8)
[2019-02-26 22:45] LABS: ALBUMIN 3.9 g/dL (3.4-5.0); ANION GAP 12.2 (8-16); CARBON DIOXIDE 27.6 mmol/L (21-32); POTASSIUM 3.8 mmol/L (3.5-5.1); TOTAL BILIRUBIN 0.6 mg/dL (0.0-1.0)
[2019-02-26 22:59] LABS: BARBITURATE, URINE NEG. ng/ml (NEG <=200); BENZODIAZEPINE, URINE NEG. ng/mL (NEG <=200); CANNABINOID, URINE POS. ng/mL (NEG <=50); COCAINE, URINE NEG. ng/mL (NEG <=300); OPIATE, URINE NEG. ng/mL (NEG <=2000); PHENCYCLIDINE SCREEN,URINE NEG. ng/mL (NEG <=25)
[2019-02-26 23:16] VITALS: BP 130/90
--- NOTE | 2019-02-26 23:16 | NUR ---
At bedside with Dr. Arita. Dr. Arita discharging patient with prescription of Lisinopril. Pt erratic, defensive and argumentative when trying to explain discharge instructions. Dr. Arita at bedside for 10 minutes explaining high blood pressure and steps patient needs to take to manage his blood pressure. Patient continues to argue with Dr. Arita. Dr. Arita provided extensive discharge instructions and advised patient to check blood pressure everyday at same time and to follow up with his primary doctor and take results of blood pressure to doctor and follow up.
--- NOTE | 2019-02-26 23:21 | NUR ---
Pt talking to himself, acting erratic. Security called to bedside to escort patient out.
--- NOTE | 2019-02-26 23:25 | NUR ---
Security at bedside. Patient yelling and eratic behavior. Patient refusing to leave. Pt escorted out to ER lobby by security.
== END 2019-02-26 23:24 | disposition home or self-care (01) ==
LOC: MED 21:14
DX: I10 Essential (primary) hypertension (principal); F12.10 Cannabis abuse, uncomplicated; F15.10 Other stimulant abuse, uncomplicated; Z79.899 Other long term (current) drug therapy
CPT/HCPCS: 36415; 80053; 80305; 81002; 85025; 99283

== ENCOUNTER 2019-07-23 00:27 | Emergency (ER) | payer MEDICAID ==
[~2019-07-23] VITALS: Ht 170.2 cm; Wt 71.7 kg
[2019-07-23 00:42] VITALS: BP 174/119
[2019-07-23] MEDS ORDERED: amLODIPine 5 MG TAB PO ONE (02:50)
[2019-07-23 03:07] VITALS: BP 174/119
== END 2019-07-23 03:07 | disposition home or self-care (01) ==
LOC: MED 00:27
DX: F41.9 Anxiety disorder, unspecified (principal); I10 Essential (primary) hypertension; Z79.899 Other long term (current) drug therapy; Z88.8 Allergy status to other drugs, medicaments and biological substances
CPT/HCPCS: 99284

== ENCOUNTER 2019-07-27 23:26 | Emergency (ER) | payer MEDICAID ==
[~2019-07-27] VITALS: Ht 172.7 cm; Wt 81.6 kg
[2019-07-27 23:26] VITALS: BP 164/114
--- NOTE | 2019-07-27 23:26 | NUR ---
LANNY MADDOX FOR PREBOOK.
--- NOTE | 2019-07-27 23:48 | NUR ---
PT AMBULATED TO CHAIR C.
--- NOTE | 2019-07-27 23:49 | NUR ---
BIB [place] [employer] AND [facility] FOR ANXIETY. VSS. HX OF ANXIETY AND SCHYZOPHRENIA. AMBULATORY. ALERT TO NAME PLACE TIME AND EVENT. PT CALM AND SITTING IN CHAIR AT THIS TIME. ER MD AWARE. CONTINUE TO MONITOR.
--- NOTE | 2019-07-28 01:00 | NUR ---
PT IN CHAIR. NO C/O AT THIS TIME. RELAXED WITH VSS. CONTINUE TO MONITOR.
--- NOTE | 2019-07-28 02:30 | NUR ---
PT SITTING IN CHAIR. PROVIDED PT WITH FOOD, WATER AND JUICE. VSS. NO C/O AT THIS TIME. CONTINUE TO MONITOR.
[2019-07-28 03:36] VITALS: BP 132/98
--- NOTE | 2019-07-28 03:36 | NUR ---
DISCHARGE INSTRUCTIONS PROVIDED TO PT. PRBOOK FORM FILLED OUT BY DENISE MADDOX. PT MEDICALLY CLEARED BY DR ALEJANDRE FOR BOOKING. RX OF NORVASC, ZYPREXA, CELEXA, AND ATARAX GIVEN. SIDE EFFECTS EXPLAINED. INSTRUCTED TO F/U WITH PCP AND WHEN TO RETURN TO ER. PT REFUSED TO SIGN PAPERWORK. PT TAKEN BY DENISE MADDOX FOR BOOKING WITH VSS. ORIGIONAL PREBOOK FORM GIVEN TO DENISE MADDOX OFFICER.
== END 2019-07-28 03:36 | disposition home or self-care (01) ==
LOC: MED 23:26
DX: F41.9 Anxiety disorder, unspecified (principal); I10 Essential (primary) hypertension; F32.9 Major depressive disorder, single episode, unspecified; F20.9 Schizophrenia, unspecified; F17.200 Nicotine dependence, unspecified, uncomplicated; F12.90 Cannabis use, unspecified, uncomplicated; Z88.5 Allergy status to narcotic agent; Z88.8 Allergy status to other drugs, medicaments and biological substances; Z79.899 Other long term (current) drug therapy
CPT/HCPCS: 99284

== ENCOUNTER 2019-09-05 01:23 | Emergency (ER) | payer MEDICAID ==
[~2019-09-05] VITALS: Ht 170.2 cm; Wt 78.0 kg
[2019-09-05 01:44] VITALS: BP 165/100
--- NOTE | 2019-09-05 02:39 | NUR ---
Dr. Sotomayor examining patient.
--- NOTE | 2019-09-05 02:43 | NUR ---
39 Y/O MALE PRESENTS TO ED FOR MEDICATION REFILL. PT STATES LOSING MEDICATION ZYPREXA, LEXAPRO AND BP MEDICATIONS. NONMED COMPLIANT FOR "A COUPLE OF DAYS" DUE TO LOSS OF MEDICATIONS. PT DENIES ANY CHEST PAIN OR HEADACHE. PT DENIES ANY HALLUCINATIONS. PT DENIES ANY THOUGHTS OF HARMING SELF/OTHERS. PT STABLE CONDITION. ERMD AWARE. WILL CONTINUE TO MONITOR.
[2019-09-05 02:53] VITALS: BP 165/100
--- NOTE | 2019-09-05 02:53 | NUR ---
PT DISCHARGED WITH PAPERWORK. RX HYDROCHLOROTHIAZIDE, NORVASC, LEXAPRO. EDUCATED PT REGARDING MEDICATIONS AND S/E. EDUCATED PT REGARDING D/C DIAGNOSIS AND INSTRUCTIONS. PT VERBALIZED UNDERSTANDING OF TEACHING. TOLD PT TO FOLLOW UP WITH PCP AND WHEN TO RETURN TO ED. PT VSS. ALL QUESTIONS ANSWERED.
== END 2019-09-05 02:53 | disposition home or self-care (01) ==
LOC: MED 01:23
DX: I10 Essential (primary) hypertension (principal); F17.200 Nicotine dependence, unspecified, uncomplicated; Z76.0 Encounter for issue of repeat prescription; Z79.899 Other long term (current) drug therapy; Z88.5 Allergy status to narcotic agent; Z88.8 Allergy status to other drugs, medicaments and biological substances
CPT/HCPCS: 99283